=== PATIENT | male | born 1930 | race Caucasian/White ===

== ENCOUNTER 2016-07-27 17:58 | Observation (INO) | payer OTHER, MEDICARE ==
[~2016-07-27] VITALS: Ht 185.4 cm; Wt 95.7 kg
[~2016-07-27 17:58] MED LIST: ALL60 PO; AMIT10TA6 PO; BIO CLEANSE PO; CHOLCAP5 PO; DXY100 PO; FINA5TAB PO; FLUT0.15 NAE; GFNSR600 PO; IPRASOL4 INH; LACT10SO17 PO; MISCCAP80 PO; MULT-106 PO; NAPHSOL OP; NRN600 PO; PRED10TA PO; PRLSR20 PO; SALI0.6510; TAMS0.4C38 PO; Ventolin HFA INH
--- NOTE | 2016-07-27 18:20 | EMERGENCY ROOM VISIT NOTE ---
History Report prepared by Kar: Criss Moreau Under the Supervision of: Dr. Russell Paulson M.D. First contact with patient: 18:13 Chief Complaint: OTHER COMPLAINT Stated Complaint: SHAKY, OTHER COMPLAINT History of Present Illness The patient is a 86 year old male who presents to the Emergency Room with complaints of persistent shakiness that began about 5 hours ago. Per patient's granddaughter, if he does not hold his hands together, his upper body shakes violently. Initially his left side of his torso was shaking, but now both sides of his upper body shake. Denies headache, fever, chills, visual changes, shortness of breath, abdominal pain, melena, hematochezia, numbness, weakness, or other complaints. He has not had any recent falls or medication changes/ discontinuations. He smokes about a half a pack a day. He drinks alcohol on occasion, about once a week. The patient had surgery to repair a bulged disc in his lower back this past April. Source of History: patient Onset: 5 hours ago Position: other (global) Quality: other (shaking) Timing: other (persistent) Associated Symptoms: No SOB, No abdominal pain, No chills, No fevers, No headache, No hematochezia, No melena, No numbness, No weakness Review of Systems See HPI for pertinent positives & negatives. A total of 10 systems reviewed and were otherwise negative. Past Medical & Surgical Medical Problems: (1) Benign prostatic hypertrophy with outflow obstruction (2) BPH (benign prostatic hyperplasia) (3) Esophageal Reflux (4) Hypertension Nos (5) Lumbar degenerative disc disease (6) Lumbar disc herniation with radiculopathy (7) Neuropathy (8) Pleural effusion (9) Senile Nuclear Cataract (10) Shortness of breath Old medical records were reviewed. Nurse's notes were reviewed and I agree with. Family History FH: HTN (hypertension) FH: cancer FH: diabetes mellitus Kidney stone Social History Smoking Status: Current Every Day Smoker Alcohol Use: occasionally Drug Use: none Marital Status: Housing Status: lives with family Occupation Status: retired Current/Historical Medications Scheduled Albuterol Hfa (Ventolin Hfa), 4 PUFFS INH Q4H Amitriptyline Hcl (Elavil), 10 MG PO HS Cholecalciferol (Vitamin D3), 5,000 INTER.UNIT PO DAILY Fexofenadine HCl (Fexofenadine HCl), 60 MG PO BID Finasteride (Proscar), 5 MG PO QPM Fluticasone Propionate (Nasal) (Flonase Allergy Relief), 2 SPRAYS CARMEN DAILY Gabapentin (Gabapentin), 900 MG PO TID Lactulose (Chronulac), 30 ML PO BID Multiple Vitamins W/ Minerals (One Daily Mens), 1 TAB PO DAILY Nutraceuticals (Nutraceuticals), 3 CAP PO DAILY Omeprazole (Prilosec), 20 MG PO DAILY Probiotic Product (Probiotic), 2 CAP PO DAILY Tamsulosin Hcl (Flomax), 0.4 MG PO BID Scheduled PRN Ipratropium-Albuterol (Duoneb), 3 ML INH q4-q6h PRN for cough/wheeze/shortness breath Naphazoline W/ Pheniramine (Eye Allergy Relief), 1 DROP OP UD PRN for Allergy Symptoms Allergies Coded Allergies: No Known Allergies (Unverified , 11/16/15) Physical Exam Vital Signs Date Time Temp Pulse Resp B/P Pulse Ox O2 Delivery O2 Flow Rate FiO2 07/27/16 20:13 79 18 161/102 94 Room Air 07/27/16 18:24 76 07/27/16 18:05 37.0 77 18 119/92 95 Room Air Physical Exam General: Non-ill appearing older male who is resting comfortably. Well developed well nourished in no acute distress, breathing comfortably on room air. Normal speech. Holding his hands together which he states stops the shaking. When he sits up he seems to have shaking. HEENT: Normal cephalic atraumatic. Pupils are equal round and reactive to light. Sclerae are anicteric. Extraocular movements are intact. Oropharynx is pink with moist mucous membranes. No swelling of the mouth lips or tongue. Neck: Supple with a midline trachea. No meningeal signs or stiffness, no JVD or bruits. No Stridor. Chest: Clear to auscultation bilaterally. No wheezes or rhonchi. No increased work of breathing. Heart: regular rate and rhythm. Abdomen: Soft nontender, nondistended without rebound guarding or rigidity. Extremities: No cyanosis clubbing or edema. No calf tenderness or assymetry Spine/Back. Non tender to palpation. No CVA tenderness Skin: Good turgor without rashes. Neurologic exam: Cranial nerves two through 12 are intact. Motor and sensation are intact and symmetrical throughout. Medical Decision & Procedures ER Provider Diagnostic Interpretation: Radiology results as stated below per my review and radiologist interpretation: CT HEAD WITHOUT CONTRAST (CT) CLINICAL HISTORY: No evidence of tremors COMPARISON STUDY: 08/20/2011 TECHNIQUE: Axial CT of the brain is performed from the vertex to the skull base. IV contrast was not administered for this examination. CT DOSE: 537.48 mGy.cm FINDINGS: No intra or extra-axial mass lesions are visualized. There is no CT evidence of acute cortical infarction. There is no evidence of midline shift. There is no acute hemorrhage. No calvarial fractures are visualized. There are patchy white matter hypodensities likely on a small vessel basis. There is no evidence of pathologic ventricular dilatation. There is no evidence of acute sinusitis IMPRESSION: No acute intracranial findings Electronically signed by: Dima Ritchie M.D. 07/27/2016 7:23 PM Dictated Date/Time: 07/27/2016 7:22 PM CHEST ONE VIEW PORTABLE CLINICAL HISTORY: Atypical chest pain COMPARISON STUDY: 05/07/2016 FINDINGS: The heart is enlarged. There is bibasal interstitial thickening. There is no overt failure. There is no lobar consolidation.[ IMPRESSION: Cardiomegaly with chronic interstitial thickening. No evidence of lobar consolidation Electronically signed by: Dima Ritchie M.D. 07/27/2016 6:48 PM Dictated Date/Time: 07/27/2016 6:47 PM Laboratory Results 07/27/16 19:03 Red Blood Count 4.76, Mean Corpuscular Volume 92.0, Mean Corpuscular Hemoglobin 31.3, Mean Corpuscular Hemoglobin Concent 34.0, Mean Platelet Volume 10.2, Neutrophils (%) (Auto) 68.8, Lymphocytes (%) (Auto) 18.0, Monocytes (%) (Auto) 10.8, Eosinophils (%) (Auto) 1.8, Basophils (%) (Auto) 0.4, Neutrophils # (Auto ) 3.37, Lymphocytes # (Auto) 0.88, Monocytes # (Auto) 0.53, Eosinophils # (Auto ) 0.09, Basophils # (Auto) 0.02 07/27/16 19:03 Test 07/27/16 19:03 07/27/16 19:09 07/27/16 19:11 07/27/16 19:52 White Blood Count 4.90 K/uL (4.8-10.8) Red Blood Count 4.76 M/uL (4.7-6.1) Hemoglobin 14.9 g/dL (14.0-18.0) Hematocrit 43.8 % (42-52) Mean Corpuscular Volume 92.0 fL (80-100) Mean Corpuscular Hemoglobin 31.3 pg (25-34) Mean Corpuscular Hemoglobin Concent 34.0 g/dl (32-36) Platelet Count 138 K/uL (130-400) Mean Platelet Volume 10.2 fL (7.4-10.4) Neutrophils (%) (Auto) 68.8 % Lymphocytes (%) (Auto) 18.0 % Monocytes (%) (Auto) 10.8 % Eosinophils (%) (Auto) 1.8 % Basophils (%) (Auto) 0.4 % Neutrophils # (Auto) 3.37 K/uL (1.4-6.5) Lymphocytes # (Auto) 0.88 K/uL (1.2-3.4) Monocytes # (Auto) 0.53 K/uL (0.11-0.59) Eosinophils # (Auto) 0.09 K/uL (0-0.5) Basophils # (Auto) 0.02 K/uL (0-0.2) RDW Standard Deviation 44.6 fL (36.4-46.3) RDW Coefficient of Variation 13.1 % (11.5-14.5) Immature Granulocyte % (Auto) 0.2 % Immature Granulocyte # (Auto) 0.01 K/uL (0.00-0.02) Prothrombin Time 10.6 SECONDS (9.0-12.0) Prothromb Time International Ratio 1.0 (0.9-1.1) Activated Partial Thromboplast Time 27.8 SECONDS (21.0-31.0) Partial Thromboplastin Ratio 1.1 Anion Gap 8.0 mmol/L (3-11) Est Creatinine Clear Calc Drug Dose 54.5 ml/min Estimated GFR () 70.1 Estimated GFR (Non- 60.5 BUN/Creatinine Ratio 9.8 (10-20) Calcium Level 9.4 mg/dl (8.5-10.1) Total Bilirubin 0.7 mg/dl (0.2-1) Direct Bilirubin 0.1 mg/dl (0-0.2) Aspartate Amino Transf (AST/SGOT) 21 U/L (15-37) Alanine Aminotransferase (ALT/SGPT) 20 U/L (12-78) Alkaline Phosphatase 120 U/L (45-117) Total Creatine Kinase 101 U/L (39-308) Creatine Kinase MB 2.2 ng/ml (0.5-3.6) Creatine Kinase MB Ratio 2.2 (0-3.0) Total Protein 7.3 gm/dl (6.4-8.2) Albumin 3.7 gm/dl (3.4-5.0) Lipase 61 U/L (73-393) Prostate Specific Antigen 1.670 ng/ml (0.000-4.000) 25-Hydroxy Vitamin D Total 39.6 ng/ml (30-100) Bedside Lactic Acid Venous 1.47 mmol/L (0.90-1.70) Bedside Troponin I 0.000 ng/ml (0-0.045) Urine Color YELLOW Urine Appearance CLEAR (CLEAR) Urine pH 7.5 (4.5-7.5) Urine Specific [place] 1.012 (1.000-1.030) Urine Protein NEG (NEG) Urine Glucose (UA) NEG (NEG) Urine Ketones TRACE (NEG) Urine Occult Blood NEG (NEG) Urine Nitrite NEG (NEG) Urine Bilirubin NEG (NEG) Urine Urobilinogen NEG (NEG) Urine Leukocyte Esterase NEG (NEG) Laboratory studies as stated above per my review. Medications Administered Medications (Trade) Dose Ordered Sig/Cyn Route Start Time Stop Time Status Last Admin Dose Admin Sodium Chloride 250 ml @ 999 mls/hr Q16M STAT IV 07/27/16 18:22 07/27/16 18:37 DC 07/27/16 18:22 999 MLS/HR Sodium Chloride (Nss 1000ml) 1,000 ml @ 100 mls/hr Q10H STAT IV 07/27/16 18:22 07/28/16 04:21 07/27/16 18:22 100 MLS/HR Lorazepam 0.5 mg 0.5 mg NOW STAT SL 07/27/16 20:05 07/27/16 20:06 DC 07/27/16 20:11 0.5 MG Sodium Chloride 500 ml @ 999 mls/hr Q31M STAT IV 07/27/16 20:05 07/27/16 20:35 DC 07/27/16 20:05 999 MLS/HR Sodium Chloride (Nss 1000ml) 1,000 ml @ 150 mls/hr Q6H40M ONCE IV 07/27/16 20:05 07/28/16 02:44 07/27/16 20:05 150 MLS/HR ECG Indication: other (shakiness) Rate (beats per minute): 73 Rhythm: normal sinus Findings: no acute ischemic change, no ectopy, other (old inferior infarct) Comparison ECG Date: 05/08/16 Change: no significant change ED Course 1814: Past medical records reviewed. The patient was evaluated in room A12, and a complete history and physical examination were performed. 1821: Ordered NSS 1000 ml @ 100 mls/hr IV, NSS 250 ml @ 999 mls/hr IV. 1922: I reassessed the patient. He was resting comfortably. 1999: I reassessed the patient. He was resting comfortably. When he holds his hands together he does not have any shaking, but when he pulls them apart, it feels like his chest shakes. 2004: Ordered NSS 1000 ml @ 150 mls/hr IV, NSS 500 ml @ 999 mls/hr IV, Lorazepam 0.5 mg SL. 2057: Upon reevaluation, the patient is resting comfortably. I discussed the results and treatment plan with the patient. He verbalized agreement of the treatment plan. The patient will be evaluated for further management. 2104: I discussed the case with Dr. Francis - [facility] Hospitalist. The patient will be evaluated for further management. Medical Decision Differential diagnosis includes sepsis, electrolyte or metabolic abnormality, medication side effect or withdrawal, arrhythmia. This patient comes in as described above. He was placed in room B12. He complains of feeling shaky was started in his ribs and when he holds his hands together, he does not feel as shaky. He denies fever or any other complaints. His been no fall or trauma. No new medications. He has nothing to suggest withdrawal. IV access was established and blood work was obtained. He has a normal neurologic exam. I did an EKG as well as a CAT scan of his head. He was reassessed frequently. I do not think this is a seizure it occurs on both sides and he is awake during these episodes. He has no fever or white count or elevations lactic acid or anything to suggest a source of infection. His chest and urine are clear without signs of infection. There is nothing to suggest that has acute coronary syndrome or arrhythmia. He has no acute electrode metabolic abnormality otherwise. He was hydrated with IV normal saline was given a second bolus as well as Ativan 0.5 mg by mouth. He was reassessed he continues to feel shaky. I do think he needs to be observed in the hospital. At this point, I do not find any toxicologic explanation. He could have anxiety however at age 86, he's never had anxiety before so I think that's less likely it could be the beginning of an infection or neurologic process which is yet to declare itself. He also may have had some chest pain initially and I do think may be needs further cardiac workup. I have consulted Dr. Trotter to see the patient further treatment and evaluation Consults Time Called: 2099 Consulting Physician: Dr. Francis - [facility] Hospitalist Returned Call: [phone] I discussed the case with him. The patient will be evaluated for further management. Impression Primary Impression: Acute chest pain Additional Impressions: Weakness Shakiness Scribe Attestation The scribe's documentation has been prepared under my direction and personally reviewed by me in its entirety. I confirm that the note above accurately reflects all work, treatment, procedures, and medical decision making performed by me. Departure Information Dispostion Being Evaluated By Hospitalist Referrals Salome Joshi M.D. (PCP) Patient Instructions My [facility] Problem Qualifiers
[2016-07-27] MEDS ORDERED: SODIUM CHLORIDE 0.9% 1000ML 250 ML IV STA (18:22)
[2016-07-27] MEDS ORDERED: SODIUM CHLORIDE 0.9% 1000ML 1,000 ML IV STA (18:22)
[2016-07-27] MEDS ORDERED: NTRC PO (18:39)
[2016-07-27] MEDS ORDERED: VNTHFA/IN INH (18:40)
--- NOTE | 2016-07-27 18:49 | DIAGNOSTIC IMAGING REPORT ---
CHEST ONE VIEW PORTABLE CLINICAL HISTORY: Atypical chest pain COMPARISON STUDY: 05/07/2016 FINDINGS: The heart is enlarged. There is bibasal interstitial thickening. There is no overt failure. There is no lobar consolidation.[ IMPRESSION: Cardiomegaly with chronic interstitial thickening. No evidence of lobar consolidation Electronically signed by: Dima Ritchie M.D. 07/27/2016 6:48 PM Dictated Date/Time: 07/27/2016 6:47 PM
[2016-07-27 19:22] LABS: BASO % 0.4 %; BASO ABS # 0.02 K/uL (0-0.2); COMPLETE YES; EOS % 1.8 %; HEMATOCRIT 43.8 % (42-52); IG% 0.2 %; LYMPH ABS # 0.88 K/uL (1.2-3.4); MEAN CORPUSCULAR HEMOGLOBIN 31.3 pg (25-34); MEAN PLATELET VOLUME 10.2 fL (7.4-10.4); MONO % 10.8 %; NEUT % 68.8 %; PLATELET COUNT 138 K/uL (130-400); RED BLOOD COUNT 4.76 M/uL (4.7-6.1)
--- NOTE | 2016-07-27 19:24 | DIAGNOSTIC IMAGING REPORT ---
CT HEAD WITHOUT CONTRAST (CT) CLINICAL HISTORY: No evidence of tremors COMPARISON STUDY: 08/20/2011 TECHNIQUE: Axial CT of the brain is performed from the vertex to the skull base. IV contrast was not administered for this examination. CT DOSE: 537.48 mGy.cm FINDINGS: No intra or extra-axial mass lesions are visualized. There is no CT evidence of acute cortical infarction. There is no evidence of midline shift. There is no acute hemorrhage. No calvarial fractures are visualized. There are patchy white matter hypodensities likely on a small vessel basis. There is no evidence of pathologic ventricular dilatation. There is no evidence of acute sinusitis IMPRESSION: No acute intracranial findings Electronically signed by: Dima Ritchie M.D. 07/27/2016 7:23 PM Dictated Date/Time: 07/27/2016 7:22 PM
[2016-07-27 19:32] LABS: PARTIAL THROMBOPLASTIN RATIO 1.1; PROTHROMBIN TIME (PATIENT) 10.6 SECONDS (9.0-12.0)
[2016-07-27 19:43] LABS: BUN/CREATININE RATIO 9.8 (10-20); CALCIUM 9.4 mg/dl (8.5-10.1); CREATININE 1.1 mg/dl (0.60-1.40); POTASSIUM 3.7 mmol/L (3.5-5.1)
[2016-07-27 19:48] LABS: CKMB/CK RATIO 2.2 (0-3.0); PROSTATE SPECIFIC ANTIGEN 1.67 ng/ml (0.000-4.000)
[2016-07-27] MEDS ORDERED: SODIUM CHLORIDE 0.9% 1000ML 500 ML IV STA (20:05)
[2016-07-27] MEDS ORDERED: SODIUM CHLORIDE 0.9% 1000ML 1,000 ML IV ONE (20:05)
[2016-07-27] MEDS ORDERED: LORAZEPAM 0.5 MG TAB SL STA (20:05)
[2016-07-27 20:13] LABS: URINE APPEARANCE CLEAR (CLEAR); URINE BILIRUBIN NEG (NEG); URINE COLOR YELLOW; URINE NITRITE NEG (NEG); URINE PH 7.5 (4.5-7.5); URINE SPECIFIC GRAVITY 1.012 (1.000-1.030); UROBILINOGEN NEG (NEG)
[2016-07-27 20:14] LABS: MANUAL MICROSCOPIC REQUIRED? NO; REVIEW REQ? NO
[2016-07-27] MEDS ORDERED: ALBUT/IPRATROP 3MG/0.5MG NEB 3 ML VIAL INH PRN (21:45)
[2016-07-27] MEDS ORDERED: ALUMINUM/MAGNESIUM/SIMETH (MAALOX MAX) 30 ML UDC PO PRN (22:00)
[2016-07-27] MEDS ORDERED: LORAZEPAM 2 MG/ML 1 ML VIAL IV PRN (22:00)
[2016-07-27] MEDS ORDERED: POLYETHYLENE (MIRALAX) 17 GM PACK PO PRN (22:00)
[2016-07-27] MEDS ORDERED: ONDANSETRON INJ 2 MG/ML 2 ML VIAL IV PRN (22:00)
[2016-07-27] MEDS ORDERED: MAGNESIUM HYDROXIDE SUSP 30 ML UDC PO PRN (22:00)
[2016-07-27] MEDS ORDERED: ACETAMINOPHEN 325 MG TAB PO PRN (22:00)
--- NOTE | 2016-07-27 22:04 | History and Physical ---
History & Physical Date & Time of Service: Jul 27, 2016 at 21:59 Chief Complaint: Shaky, Other Complaint Primary Care Physician: Salome Joshi M.D. History of Present Illness Source: patient 86 y/o M Hx COPD , BPH , neuropathy. Pt was admitted for PNM 05/04 and was diagnosed with COPD at that time. He presents with an unusual complaint of violent upper extremity shaking. This began unilaterally on the L side and then involved both upper extremities. He denies a fever, denies CP, denies diarrhea or dysuria. He does not have a history of tremors or seizures and has not had ETOH for several years. He was awake and alert when shaking. Past Medical/Surgical History (1) Benign prostatic hypertrophy with outflow obstruction Status: Chronic (2) BPH (benign prostatic hyperplasia) Status: Chronic (3) Esophageal Reflux Status: Chronic (4) Hypertension Nos Status: Chronic (5) Neuropathy Status: Chronic (6) Senile Nuclear Cataract Status: Resolved 7) COPD on recent CT 8) Tobacco use - 1/2 pack QD Family History FH: HTN (hypertension) FH: cancer FH: diabetes mellitus Kidney stone Social History Smokes 1/2 pack daily Smoking Status: Current Every Day Smoker Alcohol Use: none Drug Use: none Marital Status: Housing status: lives with family Occupational Status: retired Immunizations History of Influenza Vaccine: Yes History of Tetanus Vaccine?: Unknown History of Pneumococcal: Yes History of Hepatitis B Vaccine: Unknown Multi-Drug Resistant Organisms History of MDRO: No Allergies Coded Allergies: No Known Allergies (Unverified , 11/16/15) Home Medications Scheduled Albuterol Hfa (Ventolin Hfa), 4 PUFFS INH Q4H Amitriptyline Hcl (Elavil), 10 MG PO HS Cholecalciferol (Vitamin D3), 5,000 INTER.UNIT PO DAILY Fexofenadine HCl (Fexofenadine HCl), 60 MG PO BID Finasteride (Proscar), 5 MG PO QPM Fluticasone Propionate (Nasal) (Flonase Allergy Relief), 2 SPRAYS CARMEN DAILY Gabapentin (Gabapentin), 900 MG PO TID Lactulose (Chronulac), 30 ML PO BID Multiple Vitamins W/ Minerals (One Daily Mens), 1 TAB PO DAILY Nutraceuticals (Nutraceuticals), 3 CAP PO DAILY Omeprazole (Prilosec), 20 MG PO DAILY Probiotic Product (Probiotic), 2 CAP PO DAILY Tamsulosin Hcl (Flomax), 0.4 MG PO BID Scheduled PRN Ipratropium-Albuterol (Duoneb), 3 ML INH q4-q6h PRN for cough/wheeze/shortness breath Naphazoline W/ Pheniramine (Eye Allergy Relief), 1 DROP OP UD PRN for Allergy Symptoms Review of Systems Constitutional: + problem reported (Rigors or shaking as above), No chills, No fever, No sweats Eyes: No eye pain, No worsening of vision ENT: No hearing loss, No nasal symptoms, No unusual epistaxis Respiratory: No cough, No sputum, No wheezing Cardiovascular: No PND, No chest pain, No orthopnea Abdomen: No nausea, No pain, No vomiting Musculoskeletal: No joint pain Genitourinary - Male: No dysuria, No hematuria, No urinary frequency Neurologic: + problem reported (Tremors as above), No memory loss, No paralysis , No weakness Psychiatric: No depression symptoms Endocrine: No fatigue Hematologic / Lymphatic: No abnormal bleeding/bruising Integumentary: No rash Allergic / Immunologic: No environmental allergies Physical Exam Vital Signs Date Time Temp Pulse Resp B/P Pulse Ox O2 Delivery O2 Flow Rate FiO2 07/27/16 20:13 79 18 161/102 94 Room Air 07/27/16 18:24 76 07/27/16 18:05 37.0 77 18 119/92 95 Room Air General Appearance: WD/WN, no apparent distress Head: normocephalic, atraumatic Eyes: normal inspection, PERRL, EOMI ENT: normal ENT inspection, pharynx normal Neck: supple, no adenopathy, thyroid normal, no JVD Respiratory/Chest: chest non-tender, lungs clear, no respiratory distress, no accessory muscle use, + decreased breath sounds Cardiovascular: regular rate, rhythm, no edema, no gallop, no JVD, no murmur, normal peripheral pulses Abdomen/GI: normal bowel sounds, non tender, soft Back: normal inspection, no CVA tenderness, no muscle spasm Extremities/Musculoskelatal: normal inspection, no calf tenderness, normal capillary refill, no pedal edema, normal range of motion Neurologic/Psych: grout machine tender II-XII nml as tested, no motor/sensory deficits, alert, normal mood/affect, normal reflexes, oriented x 3, + pertinent finding (Mild B/ L tremors - possibly asterixis seen) Skin: normal color, warm/dry, no rash Diagnostics Laboratory Results Results Past 24 Hours Test 07/27/16 19:03 07/27/16 19:09 07/27/16 19:11 07/27/16 19:52 Range/Units White Blood Count 4.90 4.8-10.8 K/uL Red Blood Count 4.76 4.7-6.1 M/uL Hemoglobin 14.9 14.0-18.0 g/dL Hematocrit 43.8 42-52 % Mean Corpuscular Volume 92.0 80-100 fL Mean Corpuscular Hemoglobin 31.3 25-34 pg Mean Corpuscular Hemoglobin Concent 34.0 32-36 g/dl Platelet Count 138 130-400 K/uL Mean Platelet Volume 10.2 7.4-10.4 fL Neutrophils (%) (Auto) 68.8 % Lymphocytes (%) (Auto) 18.0 % Monocytes (%) (Auto) 10.8 % Eosinophils (%) (Auto) 1.8 % Basophils (%) (Auto) 0.4 % Neutrophils # (Auto) 3.37 1.4-6.5 K/uL Lymphocytes # (Auto) 0.88 1.2-3.4 K/uL Monocytes # (Auto) 0.53 0.11-0.59 K/uL Eosinophils # (Auto) 0.09 0-0.5 K/uL Basophils # (Auto) 0.02 0-0.2 K/uL RDW Standard Deviation 44.6 36.4-46.3 fL RDW Coefficient of Variation 13.1 11.5-14.5 % Immature Granulocyte % (Auto) 0.2 % Immature Granulocyte # (Auto) 0.01 0.00-0.02 K/uL Prothrombin Time 10.6 9.0-12.0 SECONDS Prothromb Time International Ratio 1.0 0.9-1.1 Activated Partial Thromboplast Time 27.8 21.0-31.0 SECONDS Partial Thromboplastin Ratio 1.1 Sodium Level 141 136-145 mmol/L Potassium Level 3.7 3.5-5.1 mmol/L Chloride Level 106 98-107 mmol/L Carbon Dioxide Level 27 21-32 mmol/L Anion Gap 8.0 3-11 mmol/L Blood Urea Nitrogen 11 7-18 mg/dl Creatinine 1.10 0.60-1.40 mg/dl Est Creatinine Clear Calc Drug Dose 54.5 ml/min Estimated GFR () 70.1 Estimated GFR (Non- 60.5 BUN/Creatinine Ratio 9.8 10-20 Random Glucose 86 70-99 mg/dl Calcium Level 9.4 8.5-10.1 mg/dl Total Bilirubin 0.7 0.2-1 mg/dl Direct Bilirubin 0.1 0-0.2 mg/dl Aspartate Amino Transf (AST/SGOT) 21 15-37 U/L Alanine Aminotransferase (ALT/SGPT) 20 12-78 U/L Alkaline Phosphatase 120 45-117 U/L Total Creatine Kinase 101 39-308 U/L Creatine Kinase MB 2.2 0.5-3.6 ng/ml Creatine Kinase MB Ratio 2.2 0-3.0 Total Protein 7.3 6.4-8.2 gm/dl Albumin 3.7 3.4-5.0 gm/dl Lipase 61 73-393 U/L Prostate Specific Antigen 1.670 0.000-4.000 ng/ml 25-Hydroxy Vitamin D Total 39.6 30-100 ng/ml Bedside Lactic Acid Venous 1.47 0.90-1.70 mmol/L Bedside Troponin I 0.000 0-0.045 ng/ml Urine Color YELLOW Urine Appearance CLEAR CLEAR Urine pH 7.5 4.5-7.5 Urine Specific [place] 1.012 1.000-1.030 Urine Protein NEG NEG Urine Glucose (UA) NEG NEG Urine Ketones TRACE NEG Urine Occult Blood NEG NEG Urine Nitrite NEG NEG Urine Bilirubin NEG NEG Urine Urobilinogen NEG NEG Urine Leukocyte Esterase NEG NEG Test 07/27/16 21:43 Range/Units Microbiology Results 07/27/16 Blood Culture, Lilian Batch Pending 07/27/16 Blood Culture, Received Pending 07/27/16 Blood Culture, Received Pending 07/27/16 Urine Culture, Received Pending Impression Assessment and Plan 86 y/o M Hx COPD , BPH , neuropathy. Pt was admitted for PNM 05/04 and was diagnosed with COPD at that time. He presents with an unusual complaint of violent upper extremity shaking. This began unilaterally on the L side and then involved both upper extremities. He denies a fever, denies CP, denies diarrhea or dysuria. He does not have a history of tremors or seizures and has not had ETOH for several years. He was awake and alert when shaking. 1) Tremors or rigors - no evidence of infection - benign exam - labs WNL thus far - no history of seizures, liver disease or recent ETOH use. We will observe on medicine, obtain blood cultures, TSH, ammonia and prolactin levels. If we cannot elucidate a cause and his symptoms persist, we can an MRI brain, neurology consult. This would not technically represent a partial seizure as the symptoms were B/L and there was no LOC. This may occasionally be a side effect of both Amitriptyline and Gabapentin so that both should be tapered down to measure the effect if symptoms persist. He is on an exceptionally high dose of Bubba which we will reduce currently. We can check levels of both. 2) COPD - has not been using Albuterol more often recently and had not used any the day of admission. Cont Duonebs PRN - no wheezing or SOB at present. 3) BPH - cont Flomax Full code - Heparin prophylaxis Total time for this admit including review of labs, meds, previous records - discussion with pt/family and ER attending - 35 min Level of Care Telemetry Resuscitation Status FULL RESUSCITATION VTE Prophylaxis VTE Risk Assessment Done? Y/N: Yes Risk Level: Moderate Given or contraindicated: Unfractionated heparin SQ
[2016-07-27 22:55] VITALS: BP 136/86; PULSE 89; TEMP 37.8; O2SAT 93; Ht 185.4 cm; Wt 95.7 kg
[2016-07-27] MEDS ORDERED: IV FLUIDS COMPLETED PRN (23:00)
[2016-07-27] MEDS ORDERED: LORAZEPAM INJ 0.25 MG in SYRINGE 0.125 ML IV PRN (23:15)
[2016-07-28] MEDS: ALBUTEROL HFA 8 GM INHALER INH SCH ×6 (04:00→20:37)
[2016-07-28] MEDS: HEPARIN SOD 5000 UNIT/0.5 ML CARP SQ SCH ×3 (06:10→22:06)
[2016-07-28 07:15] VITALS: BP 129/77; PULSE 74; TEMP 37.4; O2SAT 93
[2016-07-28] MEDS ORDERED: GABAPENTIN 300 MG CAP PO SCH (08:00)
[2016-07-28] MEDS: LACTULOSE SYRUP 20 GM/30 ML UDC PO SCH ×2 (08:32→20:37)
[2016-07-28] MEDS: FLUTICASONE PROPIONATE NA SPR 16 GM BTL NAE SCH (08:32)
[2016-07-28] MEDS: FEXOFENADINE HCL 60 MG TAB PO SCH ×2 (08:33→20:37)
[2016-07-28] MEDS: TAMSULOSIN HCL 0.4 MG CAP PO SCH ×2 (08:34→20:38)
[2016-07-28] MEDS: PANTOprazole SOD 40 MG TAB PO SCH (08:35)
[2016-07-28] MEDS: CEROVITE ADV FORMULA TAB PO SCH (08:37)
[2016-07-28] MEDS: LACTOBACILLUS ACIDOPHILUS (FLORANEX) TAB PO SCH (08:37)
--- NOTE | 2016-07-28 12:37 | Progress Note ---
Subjective Date of Service: Jul 28, 2016. Subjective Pt evaluation today including: conversation w/ patient, physical exam, chart review, lab review, review of studies, review of inpatient medication list Pain: no pain Voiding: no voiding problems Pt is seen and examined by me. Pt is c/o of bilateral hand tremors and shakiness of bilateral upper extremities w/o any weakness, dizziness, CP and SOB. pt is on high doses of Gabapentin for his neuropathy as well as amitriptyline. Pt denies blurry vision and headache.Pt denies abdominal pain, nausea, vomiting and diarrhea. Pt denies difficulty with speech and swallowing. Pt is fully awake, alert and oriented. Pt denies taking any herbal medication. Pt states violent upper extremity shaking, began unilaterally on the L side and then involved both upper extremities along with tremors. Pt has no shaking slight fine tremor in both hands. 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 3) BPH (benign prostatic hyperplasia) Status: Chronic 3) Esophageal Reflux Status: Chronic 4) Hypertension Nos Status: Chronic 5) Neuropathy Status: Chronic Review of Systems Neurologic: + problem reported (tremors/ shaking both UE bilateral) All Other Systems: Reviewed and Negative Medications Medications (Trade) Dose Ordered Sig/Cyn Route Start Time Stop Time Status Last Admin Dose Admin Sodium Chloride 250 ml @ 999 mls/hr Q16M STAT IV 07/27/16 18:22 07/27/16 18:37 DC 07/27/16 18:22 999 MLS/HR Sodium Chloride (Nss 1000ml) 1,000 ml @ 100 mls/hr Q10H STAT IV 07/27/16 18:22 07/27/16 22:06 DC 07/27/16 18:22 100 MLS/HR Lorazepam 0.5 mg 0.5 mg NOW STAT SL 07/27/16 20:05 07/27/16 20:06 DC 07/27/16 20:11 0.5 MG Sodium Chloride 500 ml @ 999 mls/hr Q31M STAT IV 07/27/16 20:05 07/27/16 20:35 DC 07/27/16 20:05 999 MLS/HR Sodium Chloride (Nss 1000ml) 1,000 ml @ 150 mls/hr Q6H40M ONCE IV 07/27/16 20:05 07/27/16 23:11 DC 07/27/16 20:05 150 MLS/HR Albuterol (Ventolin Hfa Inhaler) 4 puffs Q4 INH 07/28/16 00:00 08/27/16 00:00 07/28/16 08:31 4 PUFFS Fexofenadine HCl (Suzanna Tab) 60 mg BID PO 07/28/16 08:00 08/27/16 08:59 07/28/16 08:33 60 MG Fluticasone Propionate (Flonase Nasal [place]) 2 sprays DAILY CARMEN 07/28/16 08:00 08/27/16 08:59 07/28/16 08:32 2 SPRAYS Gabapentin (Neurontin Cap) 900 mg TID PO 07/28/16 08:00 08/27/16 08:59 07/28/16 08:34 900 MG Lactulose (Chronulac Syrup) 20 gm BID PO 07/28/16 08:00 08/27/16 08:59 07/28/16 08:32 20 GM Multivitamins/ Minerals (Multivitamin W/ Minerals Tab) 1 tab DAILY PO 07/28/16 08:00 08/27/16 08:59 07/28/16 08:37 1 TAB Tamsulosin HCl (Flomax Cap) 0.4 mg BID PO 07/28/16 08:00 08/27/16 08:59 07/28/16 08:34 0.4 MG Pantoprazole Sodium (Protonix Tab) 40 mg DAILY PO 07/28/16 08:00 08/27/16 08:59 07/28/16 08:35 40 MG Lactobacillus Acidophilus (Floranex Tab) 2 tab DAILY PO 07/28/16 08:00 08/27/16 08:59 07/28/16 08:37 2 TAB Heparin Sodium (Porcine) (Heparin Sq 5000 Unit/0.5ml) 5,000 unit Q8H SQ 07/28/16 06:00 08/27/16 05:59 07/28/16 06:10 5,000 UNIT Acetaminophen (Tylenol Tab) 650 mg Q4H PRN PO 07/27/16 22:00 08/26/16 21:59 07/28/16 11:56 650 MG Objective Vital Signs Date Time Temp Pulse Resp B/P Pulse Ox O2 Delivery O2 Flow Rate FiO2 07/28/16 09:05 Room Air 07/28/16 07:15 37.4 74 20 129/77 93 Room Air 07/28/16 00:01 Room Air 07/27/16 22:55 37.8 89 18 136/86 93 Room Air 07/27/16 22:55 37.8 89 18 136/86 93 Room Air 07/27/16 22:33 90 18 113/70 94 Room Air 07/27/16 20:13 79 18 161/102 94 Room Air 07/27/16 18:24 76 07/27/16 18:05 37.0 77 18 119/92 95 Room Air Physical Exam General Appearance: no apparent distress Eyes: EOMI Neck: supple Respiratory/Chest: lungs clear, normal breath sounds, no respiratory distress Cardiovascular: regular rate, rhythm, no edema, no murmur Abdomen: normal bowel sounds, non tender, soft Extremities: normal range of motion, normal inspection Neurologic/Psychiatric: life insurance specialist II-XII nml as tested, no motor/sensory deficits, alert, normal mood/affect, oriented x 3 Skin: no rash Laboratory Results Last 24 Hours Test 07/27/16 19:03 07/27/16 19:09 07/27/16 19:11 07/27/16 19:52 White Blood Count 4.90 K/uL Red Blood Count 4.76 M/uL Hemoglobin 14.9 g/dL Hematocrit 43.8 % Mean Corpuscular Volume 92.0 fL Mean Corpuscular Hemoglobin 31.3 pg Mean Corpuscular Hemoglobin Concent 34.0 g/dl Platelet Count 138 K/uL Mean Platelet Volume 10.2 fL Neutrophils (%) (Auto) 68.8 % Lymphocytes (%) (Auto) 18.0 % Monocytes (%) (Auto) 10.8 % Eosinophils (%) (Auto) 1.8 % Basophils (%) (Auto) 0.4 % Neutrophils # (Auto) 3.37 K/uL Lymphocytes # (Auto) 0.88 K/uL Monocytes # (Auto) 0.53 K/uL Eosinophils # (Auto) 0.09 K/uL Basophils # (Auto) 0.02 K/uL RDW Standard Deviation 44.6 fL RDW Coefficient of Variation 13.1 % Immature Granulocyte % (Auto) 0.2 % Immature Granulocyte # (Auto) 0.01 K/uL Prothrombin Time 10.6 SECONDS Prothromb Time International Ratio 1.0 Activated Partial Thromboplast Time 27.8 SECONDS Partial Thromboplastin Ratio 1.1 Sodium Level 141 mmol/L Potassium Level 3.7 mmol/L Chloride Level 106 mmol/L Carbon Dioxide Level 27 mmol/L Anion Gap 8.0 mmol/L Blood Urea Nitrogen 11 mg/dl Creatinine 1.10 mg/dl Est Creatinine Clear Calc Drug Dose 54.5 ml/min Estimated GFR () 70.1 Estimated GFR (Non- 60.5 BUN/Creatinine Ratio 9.8 Random Glucose 86 mg/dl Calcium Level 9.4 mg/dl Total Bilirubin 0.7 mg/dl Direct Bilirubin 0.1 mg/dl Aspartate Amino Transf (AST/SGOT) 21 U/L Alanine Aminotransferase (ALT/SGPT) 20 U/L Alkaline Phosphatase 120 U/L Total Creatine Kinase 101 U/L Creatine Kinase MB 2.2 ng/ml Creatine Kinase MB Ratio 2.2 Total Protein 7.3 gm/dl Albumin 3.7 gm/dl Lipase 61 U/L Prostate Specific Antigen 1.670 ng/ml 25-Hydroxy Vitamin D Total 39.6 ng/ml Thyroid Stimulating Hormone (TSH) 0.789 uIu/ml Prolactin 9.78 ng/mL Bedside Lactic Acid Venous 1.47 mmol/L Bedside Troponin I 0.000 ng/ml Urine Color YELLOW Urine Appearance CLEAR Urine pH 7.5 Urine Specific [place] 1.012 Urine Protein NEG Urine Glucose (UA) NEG Urine Ketones TRACE Urine Occult Blood NEG Urine Nitrite NEG Urine Bilirubin NEG Urine Urobilinogen NEG Urine Leukocyte Esterase NEG Test 07/27/16 22:09 07/27/16 23:59 07/28/16 10:35 Ammonia 30.0 umol/L Assessment and Plan 1) Tremors /Shakiness of Bilateral UE could be secondary to gabapentin high doses and amitriptyline . - Base on Pt current Crcl should not take more than 1400mg gabapentin a day in divided doses. - Higher gabapentin doses can cause shakiness and tremors. - Gabapentin/amitriptyline levels pending. TSH and prolactin level normal. - shakiness and tremors mostly resolved. - Pt neuropathic pain should be managed with lower doses by PCP. - Benign exam - labs WNL thus far - no history of seizures, no liver disease or recent ETOH use. - Will hold neurolgy consult for now, along with MRI. 2) COPD - Cont Duonebs PRN - no wheezing or SOB at present. 3) BPH - cont Flomax Continued [facility] stay due to: other Discharge planning: home
[2016-07-28] MEDS ORDERED: NURSING VERBAL MED ORDER ONE ×2 (14:00→20:00)
[2016-07-28 15:28] VITALS: BP 114/74; PULSE 70; TEMP 36.6; O2SAT 93
[2016-07-28] MEDS ORDERED: GABA-113 PO (19:56)
[2016-07-28] MEDS: GABAPENTIN 600 MG TAB PO SCH (20:38)
[2016-07-28] MEDS ORDERED: AMITRIPTYLINE HCL 10 MG TAB PO SCH (21:00)
[2016-07-28] MEDS ORDERED: FINASTERIDE 5 MG TAB PO SCH (21:00)
[2016-07-28 23:29] VITALS: BP 116/69; PULSE 71; TEMP 37.5; O2SAT 95
[2016-07-29] MEDS: ALBUTEROL HFA 8 GM INHALER INH SCH ×4 (04:00→12:48)
[2016-07-29] MEDS: HEPARIN SOD 5000 UNIT/0.5 ML CARP SQ SCH ×2 (06:15→12:48)
[2016-07-29 07:26] VITALS: BP 114/69; PULSE 66; TEMP 37; O2SAT 94
[2016-07-29] MEDS ORDERED: BIOCLEANSE PO SCH (08:00)
[2016-07-29] MEDS: GABAPENTIN 600 MG TAB PO SCH (08:01)
[2016-07-29] MEDS: CEROVITE ADV FORMULA TAB PO SCH (08:02)
[2016-07-29] MEDS: LACTULOSE SYRUP 20 GM/30 ML UDC PO SCH (08:02)
[2016-07-29] MEDS: FEXOFENADINE HCL 60 MG TAB PO SCH (08:02)
[2016-07-29] MEDS: TAMSULOSIN HCL 0.4 MG CAP PO SCH (08:02)
[2016-07-29] MEDS: LACTOBACILLUS ACIDOPHILUS (FLORANEX) TAB PO SCH (08:02)
[2016-07-29] MEDS: PANTOprazole SOD 40 MG TAB PO SCH (08:02)
[2016-07-29] MEDS: FLUTICASONE PROPIONATE NA SPR 16 GM BTL NAE SCH (08:05)
[2016-07-29 11:35] LABS: HEMATOCRIT 40.7 % (42-52); MEAN CELL VOLUME 91.9 fL (80-100); MEAN CORPUSCULAR HEMOGLOBIN 31.4 pg (25-34); MEAN CORPUSCULAR HGB CONC 34.2 g/dl (32-36); MEAN PLATELET VOLUME 10.1 fL (7.4-10.4); PLATELET COUNT 118 K/uL (130-400); RED BLOOD COUNT 4.43 M/uL (4.7-6.1)
[2016-07-29 11:58] LABS: CALCIUM 8.8 mg/dl (8.5-10.1); CREATININE 1.2 mg/dl (0.60-1.40); POTASSIUM 3.9 mmol/L (3.5-5.1)
--- NOTE | 2016-07-29 13:07 | Discharge Instructions ---
Discharge Instructions Date of Service Jul 29, 2016. (Tatum Bassett PA-C) Admission Reason for Admission: Shakiness (Tatum Bassett PA-C) Discharge Discharge Diagnosis / Problem: Tremors/shaking (Tatum Bassett PA-C) Discharge Goals Goal(s): Decrease discomfort, Improve function, Diagnostic testing, Therapeutic intervention (Tatum Bassett PA-C) Activity Recommendations Activity Limitations: resume your previous activity . (Tatum Bassett PA-C) Instructions / Follow-Up Instructions / Follow-Up You were admitted to the hospital with upper extremity tremors and shaking. A CAT scan of the head and the chest x-ray did not show any acute findings. There did not appear to be any source of infection as the cause, and all of your blood cultures were negative for infection. Several lab tests were performed to help determine the cause of your symptoms, and these were all normal. Due to your kidney function, it was determined that your dose of gabapentin was too high, and this was the most likely cause of your tremors and shaking. Your gabapentin dose was decreased and the shaking and tremors did improve. As your symptoms have nearly completely resolved, you will be continued on this lower dose of gabapentin 600 mg by mouth twice a day. Medications: *Please continue taking gabapentin 600 mg by mouth twice a day only. *You may resume your other home medications as prescribed. Follow up: *Please follow-up with your primary care provider within one week regarding your hospital stay and to ensure that your symptoms have completely resolved. Your PCP will receive a copy of your medical records, as well as the changes to your medication. Please seek medical attention if you experiences fevers, chills, sweats, chest pain, shortness of breath, nausea, vomiting, numbness and tingling, lightheadedness, loss of consciousness, or worsening tremors and shakiness. (Tatum Bassett PA-C) Current Hospital Diet Patient's current hospital diet: AHA Diet (Heart Healthy) (Tatum Bassett PA-C) Discharge Diet Recommended Diet: AHA Diet (Heart Healthy) (Tatum Bassett PA-C) Procedures Procedures Performed: Head CT scan and chest x-ray: no acute findings (Tatum Bassett PA-C) Pending Studies Studies pending at discharge: no (Tatum Bassett PA-C) Medical Emergencies . Who to Call and When: Medical Emergencies: If at any time you feel your situation is an emergency, please call 911 immediately. . (Tatum Bassett, CALEB) Non-Emergent Contact Non-Emergency issues call your: Primary Care Provider Call Non-Emergent contact if: you have a fever, you have any medication questions . (Tatum Bassett PA-C) Past History Medical & Surgical History: (1) Shakiness (2) Neuropathy (3) Hypertension Nos (4) BPH (benign prostatic hyperplasia) (Tatum Bassett, CALEB) . "Provider Documentation" section prepared by Tatum Bassett. (Tatum Bassett, REZAC) VTE Core Measure Inpt VTE Proph given/why not?: Unfractionated heparin SQ (Tatum Bassett PA-C)
--- NOTE | 2016-07-29 13:34 | Discharge Summary ---
Discharge Summary Date of Service Jul 29, 2016. 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 Esophageal Reflux Status: Chronic Hypertension Nos Status: Chronic Neuropathy Status: Chronic Senile Nuclear Cataract Status: Resolved COPD on recent CT Tobacco use - 1/2 pack QD Immunizations: Have You Had Influenza Vaccine: Yes History of Tetanus Vaccine?: Unknown History of Pneumococcal: Yes History of Hepatitis B Vaccine: Unknown (Tatum Bassett PA-C) Medication Reconciliation Continued Medications: Albuterol Hfa (Ventolin Hfa) 200 Puffs/37218 Mcg Aers 4 PUFFS INH Q4H for SOB/Wheezing, #1 INHALER Amitriptyline Hcl (Elavil) 10 Mg Tab 10 MG PO HS, TAB Cholecalciferol (Vitamin D3) 5,000 Unit Cap 5000 INTER.UNIT PO DAILY Fexofenadine HCl (Fexofenadine HCl) 60 Mg Tab 60 MG PO BID, #30 TAB 0 Refills this can be purchased over the counter; for nasal congestion. Finasteride (Proscar) 5 Mg Tab 5 MG PO QPM Fluticasone Propionate (Nasal) (Flonase Allergy Relief) 50 Mcg/Act Spr 2 SPRAYS CARMEN DAILY Gabapentin (Gabapentin) 600 Mg Tab 600 MG PO BID Ipratropium-Albuterol (Duoneb) 3 Ml Nebu 3 ML INH q4-q6h PRN for cough/wheeze/shortness breath, #1 BOX 0 Refills diagnosis - J44.1 (COPD with exacerbation) Lactulose (Chronulac) 10 Gm/15 Ml Syrp 20 GM PO BID Multiple Vitamins W/ Minerals (One Daily Mens) 1 Tab Tab 1 TAB PO DAILY Naphazoline W/ Pheniramine (Eye Allergy Relief) 1 Amarilis Amarilis 1 DROP OP UD PRN for Allergy Symptoms Nutraceuticals (Nutraceuticals) Ea 3 CAP PO DAILY Omeprazole (Prilosec) 20 Mg Capcr 20 MG PO DAILY Probiotic Product (Probiotic) 1 Cap Cap 2 CAP PO DAILY Tamsulosin Hcl (Flomax) 0.4 Mg Cap 0.4 MG PO BID, CAP Discontinued Medications: Gabapentin (Neurontin) 300 Mg Cap 900 MG PO HS, CAP Referrals At Discharge Follow up Referrals: Physician Referral - Within 1 Week with Salome Joshi M.D. Discharge Exam Patient reports feeling well. He states that shaking now only occurs intermittently and is much improved compared to admission. The patient denies fevers, chills, sweats, chest pain, palpitations, claudication, cough, wheezing , shortness of breath, nausea, vomiting, abdominal pain, dysuria, hematuria, urinary retention, paralysis, weakness, numbness and tingling. Review of Systems: Constitutional: No chills, No fever, No sweats Eyes: No diplopia, No eye pain, No worsening of vision ENT: No hearing loss, No sore throat, No trouble swallowing Respiratory: No cough, No shortness of breath, No wheezing Cardiovascular: No chest pain, No claudication, No palpitations Abdomen: No nausea, No pain, No vomiting Musculoskeletal: No calf pain, No joint pain, No muscle pain Genitourinary - Male: No dysuria, No hematuria, No urinary retention Neurologic: + problem reported (intermittent tremors in upper extremities bilaterally), No numbness/tingling, No paralysis, No weakness Integumentary: No color change, No itch, No rash Physical Exam: General Appearance: WD/WN, no apparent distress Eyes: normal inspection, PERRL, EOMI ENT: normal ENT inspection, hearing grossly normal, pharynx normal Neck: supple, no JVD, trachea midline Respiratory/Chest: lungs clear, normal breath sounds, no respiratory distress Cardiovascular: regular rate, rhythm, no gallop, no murmur Abdomen / GI: normal bowel sounds, non tender, soft Extremities: no calf tenderness, normal capillary refill, no pedal edema Neurologic/Psychiatric: alert, normal mood/affect, oriented x 3, + pertinent finding (no tremors noted) Skin: normal color, warm/dry, no rash (Tatum Bassett ., PAVaneC) Hospital Course 86 y/o male with a history of COPD, BPH , and neuropathy who presented with violent upper extremity shaking. Symptoms initially began in LUE and then spread to both upper extremities. Denies history of tremors or seizures, no alcohol for years. Awake and alert during shaking, denies any LOC. Tremors/shaking--likely secondary to high doses of gabapentin given creatinine clearance less than 60. Recommended to have 700 mg of gabapentin twice a day or less -Admitted to med/surg -TSH, ammonia and prolactin levels within normal limits -Blood cultures negative -Urine culture positive for lactobacillus. Asymptomatic, no need for tx -Gabapentin decreased to 600 mg PO BID -Symptoms have nearly completely resolved since decreasing gabapentin dose. Will continue dose as outpatient. No need for MRI or neurology consult at this time Neuropathy -Continue gabapentin as above, and amitriptyline 10 mg PO qhs COPD -Continue Albuterol inhaler BPH -Continue Flomax 0.4 mg PO BID and Proscar 5 mg PO qd DVT prophylaxis -Heparin 5000 units SC q8h Code Status -Level I, FULL RESUSCITATION STATUS Dispo -Patient medically stable to return home -Follow-up with PCP in 1 week to ensure complete resolution of symptoms Total Time Spent: Greater than 30 minutes This includes examination of the patient, discharge planning, medication reconciliation, and communication with other providers. (Tatum Bassett ., CALEB) Discharge Instructions Please refer to the electronic Patient Visit Report (Discharge Instructions) for additional information. (Tatum Bassett .CALEB) Additional Copies To Salome Joshi M.D. Reviewed: Pt Seen/Exam by Me (Britney Rodriguez MD) History Physician Cement Handler Supervision Note: I interviewed and examined the patient. Discussed with SAMMY Bassett and agree with findings and plan as documented in the note. Any exceptions or clarifications are listed here: Pt feeling completely back to normal at the time I saw him just before discharge. No tremors or shaking at all. No chest pain, no fevers, no cough, no SOB, no leg shaking, no weakness. Vitals reviewed NAD, AAOx3 RRR no mgr nl S1S2 CTAB breathing unlabored Abd +BS soft NT ND Neuro: no resting or intention tremor, moving all extremities well, no asterixis Skin: no rashes 86 yo male with bilateral arm tremors without loss of consciousness, not likely to be partial complex seizure. Resolved either on own or with lowering gabapentin dose. Gabapentin and amitriptyline levels pending at time of discharge and should be followed up on by PCP Stable for dc to home Documented By: Britney Rodriguez (Britney Rodriguez MD)
[2016-07-29 13:55] VITALS: BP 114/69; PULSE 66; TEMP 37; O2SAT 94
[2016-08-01 01:34] LABS: AMI & NORTRIPTYLINE LESS THAN 25 MCG/L (100-250); AMITRIPTYLINE LESS THAN 25 (SEE TOTAL); NORTRIPTYLINE LESS THAN 25 (SEE TOTAL)
== END 2016-07-29 15:17 | disposition home or self-care (01) ==
LOC: ENRESERVTM → ENRESERVDT → EDBD 17:58 → C.EDA 18:00 → C.4E 21:58
PROVIDERS: ADMIT Internal Medicine; ATTEND Family Medicine
DX: R25.1 Tremor, unspecified (principal); J44.9 Chronic obstructive pulmonary disease, unspecified; F17.210 Nicotine dependence, cigarettes, uncomplicated; N40.0 Benign prostatic hyperplasia without lower urinary tract symptoms; K21.9 Gastro-esophageal reflux disease without esophagitis; I10 Essential (primary) hypertension; G62.9 Polyneuropathy, unspecified; Z82.49 Family history of ischemic heart disease and other diseases of the circulatory system; Z83.3 Family history of diabetes mellitus; Z84.1 Family history of disorders of kidney and ureter; Z79.899 Other long term (current) drug therapy

== ENCOUNTER 2016-11-01 11:41 | Emergency (ER) | payer OTHER, MEDICARE ==
[~2016-11-01] VITALS: Ht 185.4 cm; Wt 85.6 kg
[~2016-11-01 11:41] MED LIST changes: -BIO CLEANSE PO; -DXY100 PO; -GFNSR600 PO; +NTRC PO; -PRED10TA PO; -SALI0.6510; +VNTHFA/IN INH; -Ventolin HFA INH
[2016-11-01 11:47] VITALS: TEMP 36.7; Ht 185.4 cm; Wt 85.6 kg
[2016-11-01] MEDS ORDERED: ALBUT/IPRATROP 3MG/0.5MG NEB 3 ML VIAL INH STA (12:08)
[2016-11-01 12:22] LABS: BASO % 0.1 %; BASO ABS # 0.01 K/uL (0-0.2); COMPLETE YES; EOS % 0.3 %; HEMATOCRIT 41.4 % (42-52); IG% 0.3 %; LYMPH % 13.5 %; LYMPH ABS # 1.88 K/uL (1.2-3.4); MEAN CELL VOLUME 91.8 fL (80-100); MEAN CORPUSCULAR HGB CONC 33.8 g/dl (32-36); MONO % 5.5 %; NEUT % 80.3 %; PLATELET COUNT 187 K/uL (130-400); RED BLOOD COUNT 4.51 M/uL (4.7-6.1); WHITE BLOOD COUNT 13.89 K/uL (4.8-10.8)
[2016-11-01 12:24] VITALS: O2SAT 96
[2016-11-01 12:31] LABS: PARTIAL THROMBOPLASTIN RATIO 1.1; PROTHROMBIN TIME (PATIENT) 10.7 SECONDS (9.0-12.0)
[2016-11-01 12:39] LABS: ALT/SGPT 16 U/L (12-78); BLOOD UREA NITROGEN 15 mg/dl (7-18); BUN/CREATININE RATIO 11.6 (10-20); CALCIUM 9.3 mg/dl (8.5-10.1); CARBON DIOXIDE 23 mmol/L (21-32); CHLORIDE 107 mmol/L (98-107); GLUCOSE 112 mg/dl (70-99); SODIUM 139 mmol/L (136-145)
--- NOTE | 2016-11-01 12:40 | DIAGNOSTIC IMAGING REPORT ---
CHEST ONE VIEW PORTABLE CLINICAL HISTORY: sob dyspnea COMPARISON STUDY: 07/27/2016 FINDINGS: Small parenchymal infiltrate medial right base. Mild stable cardiomegaly. Chronic pulmonary vascular congestion. IMPRESSION: Small parenchymal infiltrate medial right base. Baseline pulmonary vascular congestion. Electronically signed by: Mango Cotter M.D. 11/01/2016 12:38 PM Dictated Date/Time: 11/01/2016 12:38 PM
[2016-11-01 12:44] LABS: ALB/GLOB RATIO 0.8 (0.9-2); ALKALINE PHOSPHATASE 85 U/L (45-117); AST/SGOT 15 U/L (15-37); CKMB/CK RATIO 1.5 (0-3.0)
[2016-11-01] MEDS ORDERED: ACET-1256 PO (13:30)
[2016-11-01] MEDS ORDERED: BUPR-79 PO (13:30)
[2016-11-01] MEDS ORDERED: LEVOFLOXACIN 250 MG TAB PO STA (14:25)
[2016-11-01] MEDS ORDERED: LEVO-366 PO (14:25)
--- NOTE | 2016-11-01 14:25 | EMERGENCY ROOM VISIT NOTE ---
History Report prepared by Kar: Nuris Danielson Under the Supervision of: Dr. Cuong Calles D.O. First contact with patient: 12:08 Chief Complaint: RESPIRATORY PROBLEMS Stated Complaint: BAD COLD, POSSIBLY PNEUMONIA Nursing Triage Summary: triage note: pt reports "my daughter thinks i have pnemonia i have had a cough and coughing up yellow stuff and i am short of breath for the past couple days." pt also reports pain in chest with coughing. History of Present Illness The patient is a 86 year old male who presents to the Emergency Room with complaints of a persistent cough starting about 3 days ago. He reports some yellow phlegm production. He has lower chest pain with coughing. He also reports intermittent chills. He has been using his inhaler twice daily. He has a history of COPD. He denies any fevers, shortness of breath, abdominal pain, or any other complaints. Source of History: patient Onset: about 3 days ago Position: other (global) Quality: other (cough) Timing: other (persistent) Associated Symptoms: + chills, + chest pain, No fevers, No SOB, No abdominal pain Review of Systems See HPI for pertinent positives & negatives. A total of 10 systems reviewed and were otherwise negative. Past Medical & Surgical Medical Problems: (1) Benign prostatic hypertrophy with outflow obstruction (2) BPH (benign prostatic hyperplasia) (3) Esophageal Reflux (4) Hypertension Nos (5) Lumbar degenerative disc disease (6) Lumbar disc herniation with radiculopathy (7) Neuropathy (8) Pleural effusion (9) Senile Nuclear Cataract (10) Shortness of breath (11) Tremor Family History FH: HTN (hypertension) FH: cancer FH: diabetes mellitus Kidney stone Social History Smoking Status: Former Smoker Alcohol Use: occasionally Drug Use: none Marital Status: Housing Status: lives with family Occupation Status: retired Current/Historical Medications Scheduled Albuterol Hfa (Ventolin Hfa), 4 PUFFS INH Q4H Amitriptyline Hcl (Elavil), 10 MG PO HS Bupropion (Wellbutrin Sr), 150 MG PO BID Cholecalciferol (Vitamin D3), 5,000 INTER.UNIT PO DAILY Finasteride (Proscar), 5 MG PO QPM Fluticasone Propionate (Nasal) (Flonase Allergy Relief), 2 SPRAYS CARMEN DAILY Gabapentin (Gabapentin), 600 MG PO BID Lactulose (Chronulac), 20 GM PO BID Levofloxacin (Levaquin), 500 MG PO DAILY Multiple Vitamins W/ Minerals (One Daily Mens), 1 TAB PO DAILY Nutraceuticals (Nutraceuticals), 3 CAP PO DAILY Omeprazole (Prilosec), 20 MG PO DAILY Probiotic Product (Probiotic), 2 CAP PO DAILY Tamsulosin Hcl (Flomax), 0.4 MG PO BID Scheduled PRN Acetaminophen (Tylenol), 1,000 MG PO Q6H PRN for Pain Ipratropium-Albuterol (Duoneb), 3 ML INH q4-q6h PRN for cough/wheeze/shortness breath Naphazoline W/ Pheniramine (Eye Allergy Relief), 1 DROP OP UD PRN for Allergy Symptoms Allergies Coded Allergies: No Known Allergies (Unverified , 11/01/16) Physical Exam Vital Signs Date Time Temp Pulse Resp B/P (MAP) Pulse Ox O2 Delivery O2 Flow Rate FiO2 11/01/16 13:36 71 18 99/ 92 Room Air 11/01/16 12:24 96 Room Air 11/01/16 11:47 36.7 75 20 111/71 93 Room Air Physical Exam CONSTITUTIONAL/VITAL SIGNS: Reviewed / noted above. GENERAL: Non-toxic in appearance. INTEGUMENTARY: Warm, dry, and [place]. HEAD: Normocephalic. EYES: without scleral icterus or trauma. ENT/OROPHARYNX: clear and moist. LYMPHADENOPATHY/NECK: Is supple without lymphadenopathy or meningismus. RESPIRATORY: Lungs clear and equal. CARDIOVASCULAR: Regular rate and rhythm. GI/ABDOMEN: Soft and nontender. No organomegaly or pulsatile mass. No rebound or guarding. Normal bowel sounds. EXTREMITIES: Warm and well perfused. BACK: No CVA tenderness. NEUROLOGICAL: Intact without focal deficits. PSYCHIATRIC: normal affect. MUSCULOSKELETAL: Normally developed with good muscle tone. Medical Decision & Procedures ER Provider Diagnostic Interpretation: X ray results and stated below per my interpretation and radiology interpretation. CHEST ONE VIEW PORTABLE CLINICAL HISTORY: sob dyspnea COMPARISON STUDY: 07/27/2016 FINDINGS: Small parenchymal infiltrate medial right base. Mild stable cardiomegaly. Chronic pulmonary vascular congestion. IMPRESSION: Small parenchymal infiltrate medial right base. Baseline pulmonary vascular congestion. Electronically signed by: Mango Cotter M.D. 11/01/2016 12:38 PM Dictated Date/Time: 11/01/2016 12:38 PM Laboratory Results 11/01/16 12:00 Red Blood Count 4.51, Mean Corpuscular Volume 91.8, Mean Corpuscular Hemoglobin 31.0, Mean Corpuscular Hemoglobin Concent 33.8, Mean Platelet Volume 10.0, Neutrophils (%) (Auto) 80.3, Lymphocytes (%) (Auto) 13.5, Monocytes (%) (Auto) 5.5, Eosinophils (%) (Auto) 0.3, Basophils (%) (Auto) 0.1, Neutrophils # (Auto) 11.16, Lymphocytes # (Auto) 1.88, Monocytes # (Auto) 0.76, Eosinophils # (Auto) 0.04, Basophils # (Auto) 0.01 11/01/16 12:00 Test 11/01/16 12:00 White Blood Count 13.89 K/uL (4.8-10.8) Red Blood Count 4.51 M/uL (4.7-6.1) Hemoglobin 14.0 g/dL (14.0-18.0) Hematocrit 41.4 % (42-52) Mean Corpuscular Volume 91.8 fL (80-100) Mean Corpuscular Hemoglobin 31.0 pg (25-34) Mean Corpuscular Hemoglobin Concent 33.8 g/dl (32-36) Platelet Count 187 K/uL (130-400) Mean Platelet Volume 10.0 fL (7.4-10.4) Neutrophils (%) (Auto) 80.3 % Lymphocytes (%) (Auto) 13.5 % Monocytes (%) (Auto) 5.5 % Eosinophils (%) (Auto) 0.3 % Basophils (%) (Auto) 0.1 % Neutrophils # (Auto) 11.16 K/uL (1.4-6.5) Lymphocytes # (Auto) 1.88 K/uL (1.2-3.4) Monocytes # (Auto) 0.76 K/uL (0.11-0.59) Eosinophils # (Auto) 0.04 K/uL (0-0.5) Basophils # (Auto) 0.01 K/uL (0-0.2) RDW Standard Deviation 46.7 fL (36.4-46.3) RDW Coefficient of Variation 13.9 % (11.5-14.5) Immature Granulocyte % (Auto) 0.3 % Immature Granulocyte # (Auto) 0.04 K/uL (0.00-0.02) Prothrombin Time 10.7 SECONDS (9.0-12.0) Prothromb Time International Ratio 1.0 (0.9-1.1) Activated Partial Thromboplast Time 29.4 SECONDS (21.0-31.0) Partial Thromboplastin Ratio 1.1 Anion Gap 9.0 mmol/L (3-11) Est Creatinine Clear Calc Drug Dose 46.1 ml/min Estimated GFR () 57.3 Estimated GFR (Non- 49.4 BUN/Creatinine Ratio 11.6 (10-20) Calcium Level 9.3 mg/dl (8.5-10.1) Total Bilirubin 1.0 mg/dl (0.2-1) Aspartate Amino Transf (AST/SGOT) 15 U/L (15-37) Alanine Aminotransferase (ALT/SGPT) 16 U/L (12-78) Alkaline Phosphatase 85 U/L (45-117) Total Creatine Kinase 65 U/L (39-308) Creatine Kinase MB 1.0 ng/ml (0.5-3.6) Creatine Kinase MB Ratio 1.5 (0-3.0) Troponin I < 0.015 ng/ml (0-0.045) Total Protein 7.2 gm/dl (6.4-8.2) Albumin 3.2 gm/dl (3.4-5.0) Globulin 4.0 gm/dl (2.5-4.0) Albumin/Globulin Ratio 0.8 (0.9-2) Laboratory results as stated above per my review. Medications Administered Medications (Trade) Dose Ordered Sig/Cyn Route Start Time Stop Time Status Last Admin Dose Admin Albuterol/ Ipratropium (Duoneb) 3 ml NOW STAT INH 11/01/16 12:08 11/01/16 12:10 DC 11/01/16 12:39 3 ML ECG Indication: chest pain Rate (beats per minute): 70 Rhythm: normal sinus Findings: no acute ischemic change, no ectopy ED Course 1208: Previous medical records were reviewed. The patient was evaluated in room C03. A complete history and physical examination was performed. 1208: DuoNeb 3 ml INH 1425: Levofloxacin 500 mg PO 1431: On reevaluation, the patient is resting comfortably. I discussed the results and findings with the patient. He verbalized agreement of the treatment plan. He was discharged home. Medical Decision the differential was considered includes acute myocardial infarction, acute coronary syndrome, myocarditis, pericarditis, pericardial effusions /tamponad, esophageal perforation, pulmonary embolism, pneumonia, pneumothorax, cardiomyopathy, congestive heart, anemia , COPD/asthma exacerbation. Medication Reconciliation: I attest that I have personally reviewed the patient' s current medication list. Blood pressure Screening: Patient was found to have normal blood pressure on screening and does not require follow-up. This is a 6-year-old male who presents to the ED with a chief complaint of a cough. The patient has been having a cough with yellow phlegm over the past 3 days. He denies any shortness of breath. He has not had high fevers, vomiting or other significant symptoms. His vital signs are normal. His physical exam did not show any significant abnormalities. He is in no distress. His breathing appears comfortable. His EKG shows a normal sinus rhythm. White blood cell count was slightly elevated. Chemistry panel was unremarkable. A chest x-ray reveals a small pneumonia. He was started on Levaquin by mouth here. He was discharged on this. He will follow-up with his PCP for recheck or return for worsening. Impression Primary Impression: Pneumonia Scribe Attestation The scribe's documentation has been prepared under my direction and personally reviewed by me in its entirety. I confirm that the note above accurately reflects all work, treatment, procedures, and medical decision making performed by me. Departure Information Dispostion Home / Self-Care Prescriptions Levofloxacin (Levaquin) 500 Mg Tab 500 MG PO DAILY for 7 Days, #7 TAB Prov: Cuong Calles D.O. 11/01/16 Referrals Salome Joshi M.D. (PCP) Forms HOME CARE DOCUMENTATION FORM, IMPORTANT VISIT INFORMATION, WORK / SCHOOL INSTRUCTIONS Patient Instructions [facility], Pneumonia Additional Instructions Levaquin as prescribed. Follow-up with your doctor for further care and evaluation in 1-2 days. Return to the emergency department for worsening or new symptoms or any concerns. You have been examined and treated today on an emergency basis only. This is not a substitute for, or an effort to provide, complete comprehensive medical care. It is impossible to recognize and treat all injuries or illnesses in a single emergency department visit. It is therefore important that you follow up closely with your doctor. Call as soon as possible for an appointment.
[2016-11-01 15:32] VITALS: BP 90/64; PULSE 91; O2SAT 93
== END 2016-11-01 15:32 | disposition home or self-care (01) ==
LOC: C.EDB 11:42 → C.EDC 15:32
DX: J18.9 Pneumonia, unspecified organism (principal); J44.9 Chronic obstructive pulmonary disease, unspecified; N40.0 Benign prostatic hyperplasia without lower urinary tract symptoms; K21.9 Gastro-esophageal reflux disease without esophagitis; I10 Essential (primary) hypertension; M51.36 Other intervertebral disc degeneration, lumbar region; Z82.49 Family history of ischemic heart disease and other diseases of the circulatory system; Z80.9 Family history of malignant neoplasm, unspecified; Z83.3 Family history of diabetes mellitus; Z84.1 Family history of disorders of kidney and ureter; Z87.891 Personal history of nicotine dependence; Z79.899 Other long term (current) drug therapy

== ENCOUNTER → 2017-08-21 | Outpatient (CLI) | payer OTHER, MEDICARE ==
[~2017-08-21] MED LIST changes: +ACET-1256 PO; -ALL60 PO; +BUPR-79 PO; -CHOLCAP5 PO; -NAPHSOL OP; -NTRC PO; -VNTHFA/IN INH
== END | disposition home or self-care (01) ==
LOC: C.PATHSPEC 17:14
PROVIDERS: ATTEND Urology
DX: N40.1 Benign prostatic hyperplasia with lower urinary tract symptoms (principal)

== ENCOUNTER → 2017-09-16 | Outpatient (CLI) | payer OTHER, MEDICARE ==
--- NOTE | 2017-09-16 13:22 | DIAGNOSTIC IMAGING REPORT ---
CT SCAN OF THE CHEST WITHOUT IV CONTRAST CLINICAL HISTORY: Pulmonary nodule. COMPARISON STUDY: Chest CT scans dated 04/18/2016 and 04/01/2014. TECHNIQUE: CT scan of the thorax was performed from the thoracic inlet to the upper abdomen. Images are reviewed in the axial, sagittal, and coronal planes. IV contrast was not administered for this examination as per the referring clinician. A dose lowering technique was utilized adhering to the principles of ALARA. FINDINGS: Thyroid: Imaged portions of the thyroid gland are normal in size and attenuation. Thoracic aorta: There is mild atherosclerotic calcification of the thoracic aorta, which is normal in caliber and demonstrates standard 3-vessel arch anatomy. Heart: The heart is mildly enlarged and without pericardial effusion. The coronary arteries are densely calcified. Lungs and pleural spaces: There is biapical scarring and mild emphysematous change. No airspace consolidation or pleural effusion is identified. The trachea is clear. Secretions/fluid are noted in the right mainstem bronchus. Minimal subpleural reticulation is again seen the lung bases. No concerning pulmonary nodule is identified. A punctate calcified granuloma is incidentally noted in the left upper lobe. Mediastinum: There is no mediastinal lymphadenopathy. Sandy: Not well assessed without IV contrast. Axillae: There is no axillary lymphadenopathy. Upper abdomen: A 4 cm cyst is seen in the upper pole of the left kidney. The partially visualized kidneys demonstrate cortical atrophy. A tiny hiatal hernia is noted. Skeletal structures: The skeletal structures are osteopenic. No lytic or blastic bony lesions are seen. IMPRESSION: 1. Cardiomegaly and emphysema. 2. No airspace consolidation or pleural effusion is identified. 3. No pulmonary nodule or concerning pulmonary lesion is identified. Electronically signed by: Roque Rojas M.D. 09/16/2017 1:21 PM Dictated Date/Time: 09/16/2017 1:15 PM
== END | disposition home or self-care (01) ==
LOC: C.CTS 12:56
PROVIDERS: ATTEND Internal Medicine Critical Care Medicine
DX: J43.9 Emphysema, unspecified (principal); I51.7 Cardiomegaly; R91.1 Solitary pulmonary nodule

== ENCOUNTER 2018-07-11 14:15 | Inpatient (IN) ==
[2018-07-11] MEDS ORDERED: ACETAMINOPHEN 500 MG TAB PO STA (14:29)
[2018-07-11] MEDS ORDERED: SODIUM CHLORIDE 0.9% 1000ML 1,000 ML IV SCH (14:30)
[2018-07-11 14:37] LABS: Basophils # (auto) 0.01 K/uL (0-0.2); Basophils % (auto) 0.1 %; Eosinophils # (auto) 0.03 K/uL (0-0.5); Eosinophils % (auto) 0.2 %; Hematocrit (blood only) 45.4 % (42-52); Hemoglobin 15.4 g/dL (14.0-18.0); Immature Granulocytes # (auto) 0.03 K/uL (0.00-0.02); Immature Granulocytes % (auto) 0.2 %; Lymphocytes # (auto) 0.23 K/uL (1.2-3.4); Lymphocytes % (auto) 1.8 %; Mean Corpuscular Hgb Conc 33.9 g/dL (32-36); Mean Corpuscular Volume 95.6 fL (80-100); Mean Platelet Volume 10.7 fL (7.4-10.4); Monocytes # (auto) 0.63 K/uL (0.11-0.59); Monocytes % (auto) 4.8 %; Neutrophils # (auto) 12.21 K/uL (1.4-6.5); Neutrophils % (auto) 92.9 %; Platelet Count 154 K/uL (130-400); RDW Coefficient of Variation 13.2 % (11.5-14.5); RDW Standard Deviation 46.2 fL (36.4-46.3); Red Blood Count 4.75 M/uL (4.7-6.1); White Blood Count 13.14 K/uL (4.8-10.8)
[2018-07-11] MEDS ORDERED: ALBUT/IPRATROP 3MG/0.5MG NEB 3 ML VIAL NEB STA (14:37)
[2018-07-11 14:54] LABS: Alanine Aminotransferase 21 U/L (12-78); Albumin Level 3.4 gm/dl (3.4-5.0); Aspartate Aminotransferase 20 U/L (15-37); Blood Urea Nitrogen 11 mg/dl (7-18); Carbon Dioxide 26 mmol/L (21-32); Chloride 107 mmol/L (98-107); Est GFR (African American) 52.5; Est GFR (Non-African American) 45.3; Glucose 125 mg/dl (70-99); Sodium 139 mmol/L (136-145)
[2018-07-11 15:05] LABS: Albumin Globulin Ratio 0.9 (0.9-2); Alkaline Phosphatase 116 U/L (45-117); Bilirubin,Total 0.8 mg/dl (0.2-1); Globulin 3.6 gm/dl (2.5-4.0); Troponin I < 0.015 ng/ml (0-0.045)
--- NOTE | 2018-07-11 15:16 | Emergency Department Note ---
Entered by Kevin Osorio acting as a scribe for ED Provider Note CHIEF COMPLAINT: Altered mental status HISTORY OF PRESENT ILLNESS: The patient is an 88 year old male who presents to the ED with complaints of alerted mental status that started this morning per the patient's daughter. He was just discharged this morning after being hospitalized for right hip pain and shingles. He was also diagnosed with pneumonia and was prescribed Zithromax , Acyclovir, and Rocephin. He had a CT done of his chest that showed a possible internal hernia with no obstruction. He also had a chest xray that was unremarkable. Both his blood work and flu was negative. Currently the patient is not acting like himself and does not know the year. Per the daughter, he was not talking right on the phone and kept dropping it. The patient also has a fever and hypotension, as well as having a low pulse ox on the way here so he received a duoneb from EMS. He does not report any pain but he did take a tramadol prior to arrival. HPI is limited secondary to delirium. Pt denies LOC, headache, fevers, chills, diaphoresis, visual changes, neck pain , chest pain, breathing difficulties, nausea, vomiting, abdominal pain, back pain, melena, hematochezia, urinary symptoms, numbness, weakness, lymphadenopathy, rash, or other complaints. REVIEW OF SYSTEMS: See HPI for pertinent positives and negatives. A total of ten systems were reviewed and were otherwise negative. PMHx/PSHx: COPD, hypertension, chronic back pain, tremor, BPH, and hematuria. SOCIAL HISTORY: Patient lives at home. PHYSICAL EXAM: GENERAL: Awake, alert, well-appearing, in no distress HENT: Normocephalic, atraumatic. Oropharynx unremarkable. EYES: Normal conjunctiva. Sclera non-icteric. NECK: Inspection normal. Non-tender. Supple. No nuchal rigidity. FROM. No masses. RESPIRATORY: Clear to auscultation. No wheezes. No rales. Normal respiratory effort. CARDIAC: Normal rate. Normal rhythm. No murmurs. No rubs. Extremities warm and well perfused. Pulses equal. No JVD. GI: Soft, non-distended. No tenderness to palpation. No rebound or guarding. No masses. RECTAL: Deferred. MUSCULOSKELETAL: Atraumatic. Chest examination reveals no tenderness. The back is symmetrical on inspection without obvious abnormality. There is no CVA tenderness to palpation. No joint edema. LOWER EXTREMITIES: Calves are equal size bilaterally and non-tender. No edema. No discoloration. NEURO: Altered sensorium. No sensory or motor deficits noted. SKIN: No jaundice noted. Vesicular rash on the epigastrium on the right side. EMERGENCY DEPARTMENT COURSE: 1427: Past medical records reviewed. The patient was evaluated in room A03, and a complete history and physical examination were performed. 1648: I reevaluated the patient and updated him and the family on the plan. 1710: I spoke to Dr. Estevez - [facility] Hospitalist about the patient's case and he is going to accept him for further evaluation. MEDICAL DECISION MAKING: Prior records/ancillary studies reviewed and summarized above. Nursing notes reviewed and agree them. Additional history obtained from the patient's daughter. The patient's history was concerning for altered mental status. Differential diagnosis: Etiologies such as infection, hypoglycemia, electrolyte abnormalities, cardiac sources, intracerebral event, toxicologic, neurologic, as well as others were entertained. Physical examination: As above. Patient was febrile. He was confused. ER treatment provided: IV Lock Normal saline hydration Oral Tylenol On reassessment the patient felt better. Fever broke. Diagnostics interpretation by me: ECG: No acute disc The labs revealed the development of a leukocytosis. Chemistry panel and troponin were negative. PCR flu testing negative. Imaging studies: Chest imaging shows increased congestion in the lower lungs. Radiology commented on possible atelectasis. Given the patient's fever and symptoms this is concerning for possible developing pneumonia. The patient received Rocephin and Zithromax earlier this morning. He developed fever and became delirious. He is doing better after resolution of fever. The patient's blood pressure is mildly low. Lactate negative. He will need to be watched in the hospital. The patient and daughter feel comfortable with this plan. Consultation: A consultation was placed with the hospitalist. The case was discussed and diagnostics were reviewed. The patient was evaluated in the ER for further treatment. IMPRESSION: Altered mental status Fever Pneumonia Hypoxia PLAN: Evaluated by hospitalist The scribe's documentation has been prepared under my direction and personally reviewed by me in its entirety. I confirm that the note above accurately reflects all work, treatment, procedures, and medical decision making performed by me. Impression & Plan Altered mental status, Fever, Hypoxia, Acute pneumonia Past Med/Surg History Social History marital status: / Current Living Situation: Family Current Living Situation Comment: Son Cuong lives with patient current occupational status: retired Other Information That Helps Us Care for You: No Feels Safe at Home: Yes Safety Concerns: Feels Safe At This Time Smoking Status: Former smoker Tobacco Type: cigarettes Do You Dip or Chew Tobacco: No Second Hand Exposure: No Tobacco Cessation Education Requested by Patient: Yes Hx Alcohol Use: Yes Alcohol type: hard liquor Alcohol Intake Frequency: 0-2 drinks per day Hx Substance Use: No Beliefs That Will Affect Care: None Communication Ability: Effective Adjunct Instructor Required: No Results & Data Vital Signs Vital Signs - 24 hr 07/11/18 14:29 07/11/18 14:35 07/11/18 15:57 Temperature 39.3 C H Temperature Source Oral Sepsis Recent Fever Within 48 Hours Yes Sepsis New/Unexplained Change in Mental Status Yes Sepsis Action Taken by Nursing No Action Required Pulse Rate 101 H 101 H Pulse Rate [Apical] 93 H Respiratory Rate 22 24 20 Respiratory Effort / Characteristics Respiratory Depth Respiratory Pattern Blood Pressure 104/54 L Blood Pressure [Left Arm] 100/53 L Blood Pressure [Right Arm] Blood Pressure Mean 70 Blood Pressure Mean [Left Arm] 68 Blood Pressure Mean [Right Arm] Blood Pressure Position Lying Blood Pressure Position [Left Arm] Blood Pressure Position [Right Arm] Pulse Oximetry 90 90 93 Oxygen Delivery Method Room Air Room Air Nasal Cannula Oxygen Flow Rate 2 07/11/18 16:49 07/11/18 17:50 07/11/18 18:14 Temperature 37.0 C Temperature Source Oral Sepsis Recent Fever Within 48 Hours Sepsis New/Unexplained Change in Mental Status Sepsis Action Taken by Nursing Pulse Rate 90 Pulse Rate [Apical] 88 84 Respiratory Rate 20 20 18 Respiratory Effort / Characteristics Respiratory Depth Respiratory Pattern Blood Pressure 108/84 Blood Pressure [Left Arm] 95/52 L 106/64 Blood Pressure [Right Arm] Blood Pressure Mean Blood Pressure Mean [Left Arm] 66 78 Blood Pressure Mean [Right Arm] Blood Pressure Position Blood Pressure Position [Left Arm] Blood Pressure Position [Right Arm] Pulse Oximetry 20 L 94 94 Oxygen Delivery Method Nasal Cannula Nasal Cannula Oxygen Flow Rate 2 2 07/11/18 18:31 07/11/18 18:44 02/23/19 19:13 Temperature 36.9 C 36.9 C Temperature Source Oral Oral Sepsis Recent Fever Within 48 Hours Sepsis New/Unexplained Change in Mental Status Sepsis Action Taken by Nursing Pulse Rate Pulse Rate [Apical] 88 89 Respiratory Rate 20 20 Respiratory Effort / Characteristics Non-Labored Spontaneous Non-Labored Spontaneous Respiratory Depth Normal Normal Respiratory Pattern Regular Regular Blood Pressure Blood Pressure [Left Arm] 108/74 108/74 Blood Pressure [Right Arm] Blood Pressure Mean Blood Pressure Mean [Left Arm] 85 85 Blood Pressure Mean [Right Arm] Blood Pressure Position Blood Pressure Position [Left Arm] Sitting Sitting Blood Pressure Position [Right Arm] Pulse Oximetry 92 92 Oxygen Delivery Method Nasal Cannula Nasal Cannula Nasal Cannula Oxygen Flow Rate 2 2 2 07/11/18 19:26 07/11/18 19:43 Temperature 36.9 C Temperature Source Oral Sepsis Recent Fever Within 48 Hours Sepsis New/Unexplained Change in Mental Status Sepsis Action Taken by Nursing Pulse Rate Pulse Rate [Apical] 84 Respiratory Rate 18 Respiratory Effort / Characteristics Non-Labored Spontaneous SOB on Exertion Normal for Patient Respiratory Depth Normal Normal Respiratory Pattern Regular Blood Pressure Blood Pressure [Left Arm] Blood Pressure [Right Arm] 122/57 L Blood Pressure Mean Blood Pressure Mean [Left Arm] Blood Pressure Mean [Right Arm] 78 Blood Pressure Position Blood Pressure Position [Left Arm] Blood Pressure Position [Right Arm] Lying Pulse Oximetry 95 Oxygen Delivery Method Nasal Cannula Nasal Cannula Oxygen Flow Rate 2 2 Home Medications Current Medication List: was personally reviewed by me Laboratory Data Attestation: I reviewed the patient's lab results. Result diagrams: 07/11/18 14:15 07/11/18 14:15 Lab Results 07/11/18 07/11/18 07/11/18 Range/Units 14:15 14:15 14:15 WBC 13.14 H (4.8-10.8) K/uL RBC 4.75 (4.7-6.1) M/uL Hgb 15.4 (14.0-18.0) g/dL Hct 45.4 (42-52) % MCV 95.6 (80-100) fL MCH 32.4 (25-34) pg MCHC 33.9 (32-36) g/dL RDW Std Deviation 46.2 (36.4-46.3) fL RDW Coeff of Marco Antonio 13.2 (11.5-14.5) % Plt Count 154 (130-400) K/uL MPV 10.7 H (7.4-10.4) fL Immature Gran % (Auto) 0.2 % Neut % (Auto) 92.9 % Lymph % (Auto) 1.8 % Summit % (Auto) 4.8 % Eos % (Auto) 0.2 % Baso % (Auto) 0.1 % Immature Gran # (Auto) 0.03 H (0.00-0.02) K/uL Neut # (Auto) 12.21 H (1.4-6.5) K/uL Lymph # (Auto) 0.23 L (1.2-3.4) K/uL Summit # (Auto) 0.63 H (0.11-0.59) K/uL Eos # (Auto) 0.03 (0-0.5) K/uL Baso # (Auto) 0.01 (0-0.2) K/uL PT (9.0-12.0) Seconds INR (0.9-1.1) Sodium 139 (136-145) mmol/L Potassium 4.0 (3.5-5.1) mmol/L Chloride 107 (98-107) mmol/L Carbon Dioxide 26 (21-32) mmol/L Anion Gap 6.0 (3-11) BUN 11 (7-18) mg/dl Creatinine 1.38 D (0.6-1.4) mg/dl Est Cr Clr Drug Dosing 43.0 ml/min Est GFR ( Amer) 52.5 Est GFR (Non-Af Amer) 45.3 BUN/Creatinine Ratio 8.0 L (10-20) Glucose 125 H (70-99) mg/dl POC Glucose (70-99) POC Lactic Acid Carlos (0.90-1.70) mmol/L Calcium 9.0 (8.5-10.1) mg/dl Magnesium 2.0 (1.8-2.4) mg/dl Total Bilirubin 0.8 (0.2-1) mg/dl AST 20 (15-37) U/L ALT 21 (12-78) U/L Alkaline Phosphatase 116 (45-117) U/L Troponin I < 0.015 Cancelled (0-0.045) ng/ml Total Protein 7.0 (6.4-8.2) gm/dl Albumin 3.4 (3.4-5.0) gm/dl Globulin 3.6 (2.5-4.0) gm/dl Albumin/Globulin Ratio 0.9 (0.9-2) TSH 0.500 (0.300-4.500) uIu/ml Influenza Type A (PCR) (Neg) Influenza Type B (PCR) (Neg) 07/11/18 07/11/18 07/11/18 Range/Units 14:15 14:27 15:05 WBC (4.8-10.8) K/uL RBC (4.7-6.1) M/uL Hgb (14.0-18.0) g/dL Hct (42-52) % MCV (80-100) fL MCH (25-34) pg MCHC (32-36) g/dL RDW Std Deviation (36.4-46.3) fL RDW Coeff of Marco Antonio (11.5-14.5) % Plt Count (130-400) K/uL MPV (7.4-10.4) fL Immature Gran % (Auto) % Neut % (Auto) % Lymph % (Auto) % Summit % (Auto) % Eos % (Auto) % Baso % (Auto) % Immature Gran # (Auto) (0.00-0.02) K/uL Neut # (Auto) (1.4-6.5) K/uL Lymph # (Auto) (1.2-3.4) K/uL Summit # (Auto) (0.11-0.59) K/uL Eos # (Auto) (0-0.5) K/uL Baso # (Auto) (0-0.2) K/uL PT 10.4 (9.0-12.0) Seconds INR 1.0 (0.9-1.1) Sodium (136-145) mmol/L Potassium (3.5-5.1) mmol/L Chloride (98-107) mmol/L Carbon Dioxide (21-32) mmol/L Anion Gap (3-11) BUN (7-18) mg/dl Creatinine (0.6-1.4) mg/dl Est Cr Clr Drug Dosing ml/min Est GFR ( Amer) Est GFR (Non-Af Amer) BUN/Creatinine Ratio (10-20) Glucose (70-99) mg/dl POC Glucose 127 H (70-99) POC Lactic Acid Carlos (0.90-1.70) mmol/L Calcium (8.5-10.1) mg/dl Magnesium (1.8-2.4) mg/dl Total Bilirubin (0.2-1) mg/dl AST (15-37) U/L ALT (12-78) U/L Alkaline Phosphatase (45-117) U/L Troponin I (0-0.045) ng/ml Total Protein (6.4-8.2) gm/dl Albumin (3.4-5.0) gm/dl Globulin (2.5-4.0) gm/dl Albumin/Globulin Ratio (0.9-2) TSH (0.300-4.500) uIu/ml Influenza Type A (PCR) Neg for Influ A (Neg) Influenza Type B (PCR) Neg for Influ B (Neg) 07/11/18 Range/Units 15:05 WBC (4.8-10.8) K/uL RBC (4.7-6.1) M/uL Hgb (14.0-18.0) g/dL Hct (42-52) % MCV (80-100) fL MCH (25-34) pg MCHC (32-36) g/dL RDW Std Deviation (36.4-46.3) fL RDW Coeff of Marco Antonio (11.5-14.5) % Plt Count (130-400) K/uL MPV (7.4-10.4) fL Immature Gran % (Auto) % Neut % (Auto) % Lymph % (Auto) % Summit % (Auto) % Eos % (Auto) % Baso % (Auto) % Immature Gran # (Auto) (0.00-0.02) K/uL Neut # (Auto) (1.4-6.5) K/uL Lymph # (Auto) (1.2-3.4) K/uL Summit # (Auto) (0.11-0.59) K/uL Eos # (Auto) (0-0.5) K/uL Baso # (Auto) (0-0.2) K/uL PT (9.0-12.0) Seconds INR (0.9-1.1) Sodium (136-145) mmol/L Potassium (3.5-5.1) mmol/L Chloride (98-107) mmol/L Carbon Dioxide (21-32) mmol/L Anion Gap (3-11) BUN (7-18) mg/dl Creatinine (0.6-1.4) mg/dl Est Cr Clr Drug Dosing ml/min Est GFR ( Amer) Est GFR (Non-Af Amer) BUN/Creatinine Ratio (10-20) Glucose (70-99) mg/dl POC Glucose (70-99) POC Lactic Acid Carlos 1.23 (0.90-1.70) mmol/L Calcium (8.5-10.1) mg/dl Magnesium (1.8-2.4) mg/dl Total Bilirubin (0.2-1) mg/dl AST (15-37) U/L ALT (12-78) U/L Alkaline Phosphatase (45-117) U/L Troponin I (0-0.045) ng/ml Total Protein (6.4-8.2) gm/dl Albumin (3.4-5.0) gm/dl Globulin (2.5-4.0) gm/dl Albumin/Globulin Ratio (0.9-2) TSH (0.300-4.500) uIu/ml Influenza Type A (PCR) (Neg) Influenza Type B (PCR) (Neg) Administered Medications Amitriptyline HCl (Elavil) 50 mg PO HS ADITYA Stop: 08/10/18 20:59 Last Admin: 07/11/18 20:42 Dose: 50 mg Budesonide/Formoterol Fumarate (Symbicort 80mcg/4.5mcg) 2 puffs INH BID ADITYA Stop: 08/10/18 20:59 Last Admin: 07/11/18 20:43 Dose: 2 puffs Gabapentin (Neurontin) 900 mg PO TID ADITYA Stop: 08/10/18 20:59 Last Admin: 07/11/18 20:42 Dose: 900 mg Sodium Chloride (Nss 1000ml) 1,000 mls @ 100 mls/hr IV .Q10H ADITYA Stop: 08/10/18 19:59 Last Admin: 07/11/18 20:41 Dose: 100 mls/hr Discontinued Medications Acetaminophen (Tylenol) 1,000 mg PO NOW STA Stop: 02/23/19 14:30 Last Admin: 07/11/18 14:43 Dose: 1,000 mg Albuterol (Duoneb) 3 ml NEB NOW STA Stop: 07/11/18 14:38 Last Admin: 07/11/18 14:43 Dose: 3 ml Sodium Chloride (Nss 1000ml) 1,000 mls @ 125 mls/hr IV .Q8H ADITYA Stop: 07/11/18 22:29 Last Admin: 07/11/18 14:43 Dose: 125 mls/hr Sodium Chloride (Nss 1000ml) 500 mls @ 999 mls/hr IV .Q31M ONE Stop: 07/11/18 17:31 Last Admin: 07/11/18 17:04 Dose: 999 mls/hr Imaging Data Radiologist's Impression: Radiology results as stated below per my review and the radiologist's interpretation: XR chest 1V portable HISTORY: 88 years-old Male weakness acute weakness COMPARISON: Chest radiograph 07/11/2018 at 2:[address] abdomen and pelvis of same day TECHNIQUE: Portable AP view of the chest FINDINGS: Cardiac silhouette is enlarged. Pulmonary vascular congestion with mild interstitial coarsening is new from prior. Progressive bibasilar opacities, left greater than right without pneumothorax. Suggestion of a trace left pleural effusion. Degenerative changes of the shoulders and spine. IMPRESSION: 1. Cardiomegaly with interval development of mild pulmonary edema. 2. Progressive bibasilar opacities suggest atelectasis. 3. Trace left pleural effusion. The above report was generated using voice recognition software. It may contain grammatical, syntax or spelling errors. Electronically signed by: Jacek Horton M.D. 07/11/2018 3:[address] head/brain wo con CLINICAL HISTORY: 88 years-old Male with AMS, fever. Acute fever with altered mental status TECHNIQUE: Multiple axial CT images of the head were obtained without contrast. A dose lowering technique was utilized adhering to the principles of ALARA. CT DOSE: 537.48 mGy.cm COMPARISON: CT head 07/27/2016. FINDINGS: No acute intracranial hemorrhage, midline shift, intracranial mass, hydrocephalus, territorial ischemia or abnormal extra-axial collection. Age- related involutional changes. White matter hypodensities are suggestive of chronic microvascular ischemic changes. The calvarium is intact. Mild mucosal thickening of the maxillary sinuses with mild to moderate ethmoid sinus mucosal thickening. Mastoid air cells are clear. Soft tissues and orbits are unremarkable. IMPRESSION: No acute intracranial abnormality. The above report was generated using voice recognition software. It may contain grammatical, syntax or spelling errors. Electronically signed by: Jacek Horton M.D. 07/11/2018 3:48 PM ECG Data Attestation: I personally reviewed and interpreted this ECG as follows: Indication: altered mental status Rate (beats per minute): 101 Rhythm: sinus tachycardia Findings: no PAC, no PVC, no ST depression and no ST elevation Blood Pressure Blood Pressure Findings: Normal blood pressure Blood Pressure Disposition: further management by hospitalist Discharge Plan Visit Data *Final* Discharge Date/Time: 07/11/18 18:14 Chief Complaint: Altered Mental Status ED Provider: Madhu Segovia Discharge Problem: Altered mental status, Fever, Hypoxia, Acute pneumonia Patient Disposition: Home - Self-Care Discharge Instructions Interventions: ED Discharge Assessment Last Done: 07/11/18 18:14 The scribe's documentation has been prepared under my direction and personally reviewed by me in its entirety. I confirm that the note above accurately reflects all work, treatment, procedures, and medical decision making performed by me.
--- NOTE | 2018-07-11 15:17 | XRay Report ---
XR chest 1V portable HISTORY: 88 years-old Male weakness acute weakness COMPARISON: Chest radiograph 07/11/2018 at 2:[address] abdomen and pelvis of same day TECHNIQUE: Portable AP view of the chest FINDINGS: Cardiac silhouette is enlarged. Pulmonary vascular congestion with mild interstitial coarsening is ne w from prior. Progressive bibasilar opacities, left greater than right without pneumothorax. Suggesti on of a trace left pleural effusion. Degenerative changes of the shoulders and spine. IMPRESSION: 1. Cardiomegaly with interval development of mild pulmonary edema. 2. Progressive bibasilar opacities suggest atelectasis. 3. Trace left pleural effusion. The above report was generated using voice recognition software. It may contain grammatical, syntax o r spelling errors. Electronically signed by: Jacek Horton M.D. 07/11/2018 3:16 PM
--- NOTE | 2018-07-11 15:50 | CT Scan Report ---
CT head/brain wo con CLINICAL HISTORY: 88 years-old Male with AMS, fever. Acute fever with altered mental status TECHNIQUE: Multiple axial CT images of the head were obtained without contrast. A dose lowering tech nique was utilized adhering to the principles of ALARA. CT DOSE: 537.48 mGy.cm COMPARISON: CT head 07/27/2016. FINDINGS: No acute intracranial hemorrhage, midline shift, intracranial mass, hydrocephalus, territorial ischem ia or abnormal extra-axial collection. Age-related involutional changes. White matter hypodensities a re suggestive of chronic microvascular ischemic changes. The calvarium is intact. Mild mucosal thickening of the maxillary sinuses with mild to moderate ethm oid sinus mucosal thickening. Mastoid air cells are clear. Soft tissues and orbits are unremarkable. IMPRESSION: No acute intracranial abnormality. The above report was generated using voice recognition software. It may contain grammatical, syntax o r spelling errors. Electronically signed by: Jacek Horton M.D. 07/11/2018 3:48 PM
[2018-07-11 15:53] LABS: Influenza A virus by PCR Neg for Influ A (Neg); Influenza B virus by PCR Neg for Influ B (Neg)
[2018-07-11] MEDS ORDERED: SODIUM CHLORIDE 0.9% 1000ML 500 ML IV ONE (17:01)
--- NOTE | 2018-07-11 18:29 | History & Physical Report ---
Date of Service July 11, 2018 Assessment & Plan (1) Altered mental status: per patient's family, he cannot recall some of the events from yesterday or this morning they say he has a degree of cognitive impairment, but not this bad represents an abrupt change CT head normal likely metabolic encephalopathy in setting of fever, infection, dehydration look for improvement with proper treatment and supportive care (2) Pneumonia: left lower lobe, was sent home on Zithromax after dose of rocephin in the ED had fever and worsening dyspnea despite antibiotics transient oxygen desaturation at home WBC is 13k, infiltrate in left base on CXR will treat with Levaquin IV 750mg daily since he had a fever after Zithromax and Rocephin check CBC daily follow for improvement in respiratory symptoms NSS at 100cc/hr (3) Shingles: vesicular rash on abdomen, erythema in midline just inferior to sternum, several vesicles yesterday and this morning he had severe right flank pain, could correspond with this dermatome look for appearance of further vesicular rash continue Valtrex that was started yesterday by the ER 1000mg q8 x 7 days total (4) Hypertension: no home medications, BP actually low normal in the ED (5) Chronic back pain: no current back pain at time of admission (6) Fever: due to pneumonia, treat infection (7) Dehydration: NSS at 100cc/hr Cr is slightly higher than yesterday but no signs of JESUS follow UO (8) BPH (benign prostatic hyperplasia): continue Finasteride, Flomax (9) COPD (chronic obstructive pulmonary disease): continue maintenance inhalers with Budesonide-Formoterol Duoneb Q4 PRN minimal expiratory wheezing, no distress would not use steroids at this time, breathing is stable History of Present Illness Chief Complaint: I had a fever at home Primary Care Provider: Ean Arauz, DO 88 yo male with history of mild cognitive impairment, COPD, tobacco abuse, BPH who returns to the ED after being discharged yesterday, treated for community acquired pneumonia. The patient was noted to have a vesicular rash on upper abdomen and right flank pain. Was treated with Valtrex. He was treated with Azithromcyin for the pneumonia. The patient went home but he started to act slightly confused according to family. He was not eating or drinking well. He had a fever at home and sweats and chills. He felt slightly more short of breath but not severe. He had a nonproductive cough. Flu testing was negative. CXR shows bibasilar infiltrates, left side more predominant. He was given Tylenol for a fever and in improved. He had a leukocytosis of 13k. Cr was up slightly to 1.38 from 1.00. His family says that he was acting confused from the time he got home. His speech was slightly garbled. He cannot give any specific details about his time at home, about his symptoms, about his recent history. Allergies Allergy/AdvReac Type Severity Reaction Status Date / Time No Known Allergies Allergy Verified 07/11/18 14:27 Home Medications Home Medications Medication Instructions Recorded Confirmed Type acetaminophen 500 mg capsule 1,000 mg PO Q6H PRN cap 05/14/18 07/11/18 History budesonide-formoterol HFA 80 2 puffs INH BID 05/14/18 07/11/18 History mcg-4.5 mcg/actuation aerosol inhaler cholecalciferol (vitamin D3) 5,000 5,000 units PO DAILY 05/14/18 07/11/18 History unit capsule finasteride 5 mg tablet 5 mg PO PM tab 05/14/18 07/11/18 History fluticasone 50 mcg/actuation nasal 2 sprays INTNAS DAILY 05/14/18 07/11/18 History spray,suspension omeprazole 20 mg capsule,delayed 20 mg PO DAILY 05/14/18 07/11/18 History release oxybutynin chloride 5 mg tablet 5 mg PO DAILY tab 05/14/18 07/11/18 History tamsulosin 0.4 mg capsule 0.4 mg PO DAILY 05/14/18 07/11/18 History amitriptyline 50 mg tablet 50 mg PO HS #90 tab 05/15/18 07/11/18 Rx gabapentin 300 mg capsule 900 mg PO TID cap 05/15/18 07/11/18 History Bio Cleanse 1 dose PO DAILY 07/11/18 07/11/18 History Pro Cleanse 1 dose PO DAILY 07/11/18 07/11/18 History doxycycline hyclate 100 mg PO Q12H 7 Days #14 tab 07/11/18 07/11/18 Rx food supplemt, lactose-reduced 1 btl PO DAILY 07/11/18 07/11/18 History [Boost] lactulose [Enulose] 15 ml PO DAILY 07/11/18 07/11/18 History multivitamin [One Daily 1 tab PO DAILY 07/11/18 07/11/18 History Multivitamin] peg [id number] [Eye 2 drp OPHTHALMIC (EYE) DIRECTED 07/11/18 07/11/18 History Drop Tears] PRN psyllium husk [Metamucil] 1 dose PO DIRECTED 07/11/18 07/11/18 History valacyclovir 1,000 mg PO Q8H 7 Days #21 tab 07/11/18 07/11/18 Rx Past Med/Surg History Social History marital status: / Current Living Situation: Family Current Living Situation Comment: Kristopher Hutchins lives with patient current occupational status: retired Other Information That Helps Us Care for You: No Feels Safe at Home: Yes Safety Concerns: Feels Safe At This Time Smoking Status: Former smoker Tobacco Type: cigarettes Do You Dip or Chew Tobacco: No Second Hand Exposure: No Tobacco Cessation Education Requested by Patient: Yes Hx Alcohol Use: Yes Alcohol type: hard liquor Alcohol Intake Frequency: 0-2 drinks per day Hx Substance Use: No Beliefs That Will Affect Care: None Communication Ability: Effective Veterinary Surgeon Required: No Review of Systems All systems reviewed & are unremarkable except as noted in HPI & below Constitutional: + fever, + chills, + sweats, + fatigue and + weakness Respiratory: + cough, + dyspnea and + dyspnea on exertion Cardiovascular: no chest pain Integumentary: + rash (midline) Physical Exam 2 Vital Signs (Past 24 Hours): Last Vital Signs Temp 37.0 C 07/11/18 16:49 Pulse 84 07/11/18 17:50 Resp 20 07/11/18 17:50 BP 106/64 07/11/18 17:50 Pulse Ox 94 07/11/18 17:50 Constitutional: WD/WN, vitals as above Eyes: PERRL, conjunctivae normal, anicteric sclerae ENMT: external ear and nose normal, oropharynx normal Neck: trachea midline, no thyromegaly Respiratory: normal respiratory effort and + cough; no respiratory distress and no labored breathing Auscultation: + rhonchi and + wheezes (faint, end exhalation) Cardiovascular: RRR, no murmur, no edema Gastrointestinal (Abdomen): normal bowel sounds, soft, nontender, no hepatosplenomegaly Musculoskeletal: no cyanosis or clubbing, extremities motor strength 5/5 Skin: + rash (in midline, inferior to sternum, erythema with 4-5 clear vesicles) Neurologic: patellar DTR's 2+ bilat, sensation intact and PERRL, EOMI, accommodation nl, no face palsy, no dysarthria Psychiatric: Orientation: alert, oriented to person and cooperative; + not oriented to place and + not oriented to time Lymphatic: no cervical or axillary lymphadenopathy Results & Data Laboratory Results Laboratory Results - last 24 hr 07/11/18 07/11/18 07/11/18 14:15 14:15 14:15 WBC 13.14 H RBC 4.75 Hgb 15.4 Hct 45.4 MCV 95.6 MCH 32.4 MCHC 33.9 RDW Std Deviation 46.2 RDW Coeff of Marco Antonio 13.2 Plt Count 154 MPV 10.7 H Immature Gran % (Auto) 0.2 Neut % (Auto) 92.9 Lymph % (Auto) 1.8 [place] % (Auto) 4.8 Eos % (Auto) 0.2 Baso % (Auto) 0.1 Immature Gran # (Auto) 0.03 H Neut # (Auto) 12.21 H Lymph # (Auto) 0.23 L [place] # (Auto) 0.63 H Eos # (Auto) 0.03 Baso # (Auto) 0.01 Sodium 139 Potassium 4.0 Chloride 107 Carbon Dioxide 26 Anion Gap 6.0 BUN 11 Creatinine 1.38 D Est Cr Clr Drug Dosing 43.0 Est GFR ( Amer) 52.5 Est GFR (Non-Af Amer) 45.3 BUN/Creatinine Ratio 8.0 L Glucose 125 H POC Glucose POC Lactic Acid Carlos Calcium 9.0 Magnesium 2.0 Total Bilirubin 0.8 AST 20 ALT 21 Alkaline Phosphatase 116 Troponin I < 0.015 Cancelled Total Protein 7.0 Albumin 3.4 Globulin 3.6 Albumin/Globulin Ratio 0.9 TSH 0.500 Influenza Type A (PCR) Influenza Type B (PCR) 07/11/18 07/11/18 07/11/18 14:27 15:05 15:05 WBC RBC Hgb Hct MCV MCH MCHC RDW Std Deviation RDW Coeff of Marco Antonio Plt Count MPV Immature Gran % (Auto) Neut % (Auto) Lymph % (Auto) [place] % (Auto) Eos % (Auto) Baso % (Auto) Immature Gran # (Auto) Neut # (Auto) Lymph # (Auto) [place] # (Auto) Eos # (Auto) Baso # (Auto) Sodium Potassium Chloride Carbon Dioxide Anion Gap BUN Creatinine Est Cr Clr Drug Dosing Est GFR ( Amer) Est GFR (Non-Af Amer) BUN/Creatinine Ratio Glucose POC Glucose 127 H POC Lactic Acid Carlos 1.23 Calcium Magnesium Total Bilirubin AST ALT Alkaline Phosphatase Troponin I Total Protein Albumin Globulin Albumin/Globulin Ratio TSH Influenza Type A (PCR) Neg for Influ A Influenza Type B (PCR) Neg for Influ B Diagnostic Findings CHEST XRAY IMPRESSION: 1. Cardiomegaly with interval development of mild pulmonary edema. 2. Progressive bibasilar opacities suggest atelectasis. 3. Trace left pleural effusion. CT HEAD IMPRESSION: No acute intracranial abnormality. Code Status & VTE Plan Code Status FULL CODE VTE Prophylaxis Plan VTE Prophylaxis will be ordered: Yes _ (1) Shingles Herpes zoster complications: without complications Herpes zoster neurologic complication detail: Herpes zoster ocular complication detail: Qualified Code(s): B02.9 - Zoster without complications (2) Pneumonia Aspiration pneumonia type: Laterality: left Lung location: lower lobe of lung Pneumonia type: due to unspecified organism Qualified Code(s): J18.1 - Lobar pneumonia, unspecified organism (3) Altered mental status Altered mental status type: delirium Coma depth: Coma timing: Qualified Code(s): R41.0 - Disorientation, unspecified
[2018-07-11] MEDS ORDERED: ONDANSETRON INJ 2 MG/ML 2 ML VIAL IV PRN (18:44)
[2018-07-11] MEDS ORDERED: ARTIFICIAL TEARS OP PRN (18:44)
[2018-07-11] MEDS ORDERED: POLYETHYLENE (MIRALAX) 17 GM PACK PO PRN (18:44)
[2018-07-11] MEDS ORDERED: ALBUT/IPRATROP 3MG/0.5MG NEB 3 ML VIAL NEB PRN (18:44)
[2018-07-11] MEDS ORDERED: LEVOFLOXACIN CONSULT ACTIVE PRN (20:35)
[2018-07-11] MEDS: SODIUM CHLORIDE 0.9% 1000ML 1,000 ML IV SCH (20:41)
[2018-07-11] MEDS: AMITRIPTYLINE HCL 50 MG TAB PO SCH (20:42)
[2018-07-11] MEDS: GABAPENTIN 300 MG CAP PO SCH (20:42)
[2018-07-11] MEDS: BUDESONIDE/FORMOTEROL FUMARATE 80/4.5 60 PUFFS/INHALER INH SCH (20:43)
[2018-07-11 20:52] LABS: Prothrombin Time 10.4 Seconds (9.0-12.0)
[2018-07-11] MEDS ORDERED: LEVOFLOXACIN/D5W 750 MG/150 ML BAG IV SCH (21:00)
[2018-07-11] MEDS: VALACYCLOVIR HCL 500 MG TABLET PO SCH (21:09)
[2018-07-11] MEDS: ENOXAPARIN INJ 40 MG/0.4 ML SYR SQ SCH (21:46)
[2018-07-12 05:43] LABS: Appearance Urine Clear (Clear); Bacteria Urine Automated Negative (Negative); Bilirubin Urine Negative (Negative); Blood Urine Trace (Negative); Color Urine Dark Yellow; Glucose Urine UA Negative (Negative); Ketones Urine Trace (Negative); Leukocyte Esterase Urine Negative (Negative); Nitrite Urine Negative (Negative); Protein Urine Negative (Negative); Specific Gravity Urine 1.036 (1.000-1.030); Urobilinogen Urine Negative (Negative)
[2018-07-12] MEDS: VALACYCLOVIR HCL 500 MG TABLET PO SCH ×3 (06:13→21:32)
[2018-07-12] MEDS: SODIUM CHLORIDE 0.9% 1000ML 1,000 ML IV SCH ×2 (06:16→16:41)
[2018-07-12 07:02] LABS: Basophils # (auto) 0.03 K/uL (0-0.2); Basophils % (auto) 0.3 %; Eosinophils # (auto) 0.39 K/uL (0-0.5); Eosinophils % (auto) 3.7 %; Hematocrit (blood only) 39.7 % (42-52); Hemoglobin 13.3 g/dL (14.0-18.0); Immature Granulocytes # (auto) 0.02 K/uL (0.00-0.02); Immature Granulocytes % (auto) 0.2 %; Lymphocytes # (auto) 0.59 K/uL (1.2-3.4); Lymphocytes % (auto) 5.7 %; Mean Corpuscular Hgb Conc 33.5 g/dL (32-36); Mean Corpuscular Volume 95.9 fL (80-100); Monocytes # (auto) 0.61 K/uL (0.11-0.59); Monocytes % (auto) 5.8 %; Neutrophils # (auto) 8.79 K/uL (1.4-6.5); Neutrophils % (auto) 84.3 %; Platelet Count 130 K/uL (130-400); RDW Coefficient of Variation 13.9 % (11.5-14.5); RDW Standard Deviation 49.3 fL (36.4-46.3); Red Blood Count 4.14 M/uL (4.7-6.1); White Blood Count 10.43 K/uL (4.8-10.8)
[2018-07-12 07:31] LABS: BUN Creatinine Ratio 13.8 (10-20); Calcium 8.2 mg/dl (8.5-10.1); Est GFR (Non-African American) 49.2; Potassium 4.1 mmol/L (3.5-5.1)
[2018-07-12] MEDS: OXYBUTYNIN CHLORIDE 5 MG TAB PO SCH (09:00)
[2018-07-12] MEDS: LACTULOSE SYRUP 10 GM/15 ML BTL 473 ML PO SCH (09:00)
[2018-07-12] MEDS: FLUTICASONE PROPIONATE NA SPR 16 GM BTL SCH (09:01)
[2018-07-12] MEDS: PANTOprazole 40 MG TAB PO SCH (09:01)
[2018-07-12] MEDS: GABAPENTIN 300 MG CAP PO SCH ×3 (09:01→19:49)
[2018-07-12] MEDS: TAMSULOSIN HCL 0.4 MG CAP PO SCH (09:01)
[2018-07-12] MEDS: BUDESONIDE/FORMOTEROL FUMARATE 80/4.5 60 PUFFS/INHALER INH SCH ×2 (09:32→19:46)
--- NOTE | 2018-07-12 10:19 | Family Medicine Progress Note ---
Addendum entered and electronically signed by Vasquez Paige MD 07/12/18 17:06: Addendum (Blank) Addendum July 12, 2018 17:03 Addendum to shingles pain control: Consider lidoderm cut into strips once vesicles begin to crust/heal. Original Note: Date of Service July 12, 2018 I personally examined the patient and verified all bowens points of history and exam, discussed case, and agree with decision making with Dr Paige Breathing feels okay. Shingles hurts. Vitals noted, in general he is awake alert oriented pleasant no distress. HEENT normocephalic atraumatic mucous membranes moist. Breathing is unlabored clear but somewhat difficult exam no focal findings. Vesicles characteristic of shingles in a dermatomal distribution on the right upper abdomen and right back Community-acquired pneumonia�failed Zithromax, worsened, more than likely were looking at either gram-negative such as Haemophilus influenza versus a more resistant strep pneumo. Given recent recommendations in regards to Levaquin, this will be discontinued in favor of ceftriaxone, ceftriaxone should cover either of are potential culprits. Shingles�continue Valtrex, pain control, supportive care. Hopefully can initiate lidocaine patches soon. Otherwise as above Assessment & Plan (1) Pneumonia: Mr. Vo is an 88yo M with a PMHx of mild cognitive impairment, COPD, tobacco abuse, and BPH who was recently discharged from the ED on 07/11 for LLL pneumonia who presents with fever, chills, AMS, and mild increase in shortness of breath after returning home. He has a vesicular rash in a dermatomal distrubution consistent with shingles. Pneumonia w/ hypoxia - CXR shows LLL pleural effusion, mild pulmonary edema (new), atelectasis - Received ceftriaxone on 07/11 in ED and completed one dose of azithromycin prior to representation - Levofloxacin 750mg Q48H (renal dose adjustment) started on admit. Given tobacco abuse will convert to ceftriaxone and plan for cefdinir/cefpodoxime conversion when ready for PO. - CBC daily. WBC 7 --> 13 --> 10 - O2NC PRN to maintain SpO2 >92-94%. On room air this morning. Shingles - Acute, vesicular eruption with dermatomal distribution of pain 1 day ago - Continue valacyclovir 1g Q8H (Day 06/25) - Follow for further rash eruption, contact precautions - APAP 650mg Q4H PRN - Continues to have breakthrough pain despite APAP. He is also already on gabapentin 900mg TID at baseline. If he continues to have pain would add adjuct a low dose oxycodone IR/morphine, but have reservations given his history of cognitive impairment and risk for delerium. Discussed with pt that his pain is consistent with shingles, and even with aggressive pain control he is unlikely to be completely pain free during an acute episode. His pain is reproducible on palpation and dermatomally limited. COPD - [employer] Budesonide-Formoterol - Duoneb Q4H PRN HTN - By history, although BP well controlled [employer], hypotensive on admit - No antihypertensives [employer] Volume Depletion - IVFM: NSS 100cc/hr BPH - Tamulosin .4mg PO daily - oxybutinin 5mg daily vs finasteride? Chronic Back Pain - No back pain at time of admission other than shingles pain as noted - [employer] Amitriptyline DVT Prophylaxsis: Enoxaparin 40mg SQ (2) Hypoxia: (3) Shingles: (4) Fever: (5) Altered mental status: Subjective Mr. Vo reports that he feels 'like he is here' today. Reports that yesterday he had increased shortness of breath, fever, chills at home following discharge from the hospital and had some pain in his abdomen and a rash. He does not feel shortness of breath at rest in bed today. No fever or chills overnight. No night sweats overnight. Endorses some fatigue. Denies abdominal pain, diarrhea, constipation. Endorses decreased appetite without nausea or vomiting. Endorses some itchy/painful discomfort in his right lower abdomen wrapping around to his back where his rashes, but that it is'not too bad.' Voices no questions or concerns Addendum: 2:10pm Saw pt at bedside, reporting R sided chest pain to nursing staff. Pain is his R upper abdomen 'in the skin', burning in quality, and wraps to his back in a dermatomal distribution and overlaps his vesicular rash. 2/10 at rest, 10/10 when coughing. Mildly improved with APAP 650mg, worsened by palpation/touch. No chest pain, no increased shortness of breath, diaphoresis, worsening breathing, shoulder pain. Review of Systems All systems reviewed & are unremarkable except as noted in HPI & below Physical Exam 2 Vital Signs (Past 24 Hours): Last Vital Signs Temp 37.1 C 07/12/18 07:05 Pulse 77 07/12/18 07:05 Resp 18 07/12/18 07:05 BP 99/46 L 07/12/18 07:05 Pulse Ox 92 07/12/18 07:05 Physical Exam: General: A&O to name. NAD. Cooperative. HEENT: Atraumatic, normocephalic. Pulm: RLL, LLL with soft rales. no rhonchi. Mild diffuse wheeze appreciated on forced expiration. Symmetrical chest rise. Moderate air movement. No respiratory distress. Cardiac: RRR, -mrg. Radial pulses intact and symmetrical. Abdominal: Nondistended, soft. BS present. Vesicular rash on right abdomen at ~ T9 with some burning and sensitivity to touch wrapping in a dermatomal distribution to the back. Results & Data Laboratory Results Abnormal lab results 07/11/18 07/11/18 07/11/18 Range/Units 14:15 14:15 14:27 WBC 13.14 H (4.8-10.8) K/uL RBC (4.7-6.1) M/uL Hgb (14.0-18.0) g/dL Hct (42-52) % RDW Std Deviation (36.4-46.3) fL MPV 10.7 H (7.4-10.4) fL Immature Gran # (Auto) 0.03 H (0.00-0.02) K/uL Neut # (Auto) 12.21 H (1.4-6.5) K/uL Lymph # (Auto) 0.23 L (1.2-3.4) K/uL [place] # (Auto) 0.63 H (0.11-0.59) K/uL Chloride (98-107) mmol/L BUN/Creatinine Ratio 8.0 L (10-20) Glucose 125 H (70-99) mg/dl POC Glucose 127 H (70-99) Calcium (8.5-10.1) mg/dl Ur Specific [place] (1.000-1.030) Urine Ketones (Negative) Urine Blood (Negative) Urine RBC (Auto) (0-4) /hpf U Epithel Cells (Auto) (0-5) /lpf 07/12/18 07/12/18 07/12/18 Range/Units 04:30 06:39 06:39 WBC (4.8-10.8) K/uL RBC 4.14 L (4.7-6.1) M/uL Hgb 13.3 L (14.0-18.0) g/dL Hct 39.7 L (42-52) % RDW Std Deviation 49.3 H (36.4-46.3) fL MPV (7.4-10.4) fL Immature Gran # (Auto) (0.00-0.02) K/uL Neut # (Auto) 8.79 H (1.4-6.5) K/uL Lymph # (Auto) 0.59 L (1.2-3.4) K/uL [place] # (Auto) 0.61 H (0.11-0.59) K/uL Chloride 110 H (98-107) mmol/L BUN/Creatinine Ratio (10-20) Glucose 110 H (70-99) mg/dl POC Glucose (70-99) Calcium 8.2 L (8.5-10.1) mg/dl Ur Specific [place] 1.036 H (1.000-1.030) Urine Ketones Trace H (Negative) Urine Blood Trace H (Negative) Urine RBC (Auto) 10-30 H (0-4) /hpf U Epithel Cells (Auto) 5-10 H (0-5) /lpf Medications Administered Current Inpatient Medications Acetaminophen (Tylenol) 650 mg PO Q4H PRN PRN Reason: Pain or Fever Stop: 08/10/18 18:43 Albuterol (Duoneb) 3 ml NEB Q4R PRN PRN Reason: Shortness Of Breath Or Wheezing Stop: 08/10/18 18:43 Amitriptyline HCl (Elavil) 50 mg PO HS ADITYA Stop: 08/10/18 20:59 Last Admin: 07/11/18 20:42 Dose: 50 mg Artificial Tears (Artificial Tears) 2 drops OP UD PRN PRN Reason: Dry Eye(S) Stop: 08/10/18 18:43 Budesonide/Formoterol Fumarate (Symbicort 80mcg/4.5mcg) 2 puffs INH BID ADITYA Stop: 08/10/18 20:59 Last Admin: 07/12/18 09:32 Dose: 2 puffs Enoxaparin Sodium (Lovenox) 40 mg SQ QPM ADITYA Stop: 08/10/18 20:59 Last Admin: 07/11/18 21:46 Dose: 40 mg Fluticasone Propionate (Flonase) 2 sprays NA DAILY ADITYA Stop: 08/11/18 08:59 Last Admin: 07/12/18 09:01 Dose: 2 sprays Gabapentin (Neurontin) 900 mg PO TID ADITYA Stop: 08/10/18 20:59 Last Admin: 07/12/18 09:01 Dose: 900 mg Sodium Chloride (Nss 1000ml) 1,000 mls @ 100 mls/hr IV .Q10H [facility] Stop: 08/10/18 19:59 Last Admin: 07/12/18 06:16 Dose: 100 mls/hr Levofloxacin/Dextrose (Levaquin/D5w) 750 mg in 150 mls @ 100 mls/hr IV Q48H [facility] ; Protocol Stop: 07/18/18 20:59 Last Infusion: 07/11/18 22:47 Dose: Infused Lactulose (Chronulac) 10 gm PO DAILY [facility] Stop: 08/11/18 08:59 Last Admin: 07/12/18 09:00 Dose: 10 gm Miscellaneous Information (Consult) 1 ea N/A UD PRN PRN Reason: Consult Stop: 08/10/18 20:34 Ondansetron HCl (Zofran) 4 mg IV Q6H PRN PRN Reason: Nausea Stop: 08/10/18 18:43 Oxybutynin Chloride (Ditropan) 5 mg PO DAILY [facility] Stop: 08/11/18 08:59 Last Admin: 07/12/18 09:00 Dose: 5 mg Pantoprazole Sodium (Protonix) 40 mg PO DAILY [facility] Stop: 08/11/18 08:59 Last Admin: 07/12/18 09:01 Dose: 40 mg Polyethylene Glycol (Miralax Powder Packet) 17 gm PO DAILY PRN PRN Reason: Constipation Stop: 08/10/18 18:43 Tamsulosin HCl (Flomax) 0.4 mg PO DAILY [facility] Stop: 08/11/18 08:59 Last Admin: 07/12/18 09:01 Dose: 0.4 mg Valacyclovir HCl (Valtrex) 1,000 mg PO Q8 ADITYA Stop: 07/21/18 21:59 Last Admin: 07/12/18 09:00 Dose: 1,000 mg Resident Activity Tracking Resident Involvement: Resident Care Provided Care Provided: [facility] [place] [facility] _ (1) Fever Encounter type: Fever type: unspecified Qualified Code(s): R50.9 - Fever, unspecified (2) Shingles Herpes zoster complications: without complications Herpes zoster neurologic complication detail: Herpes zoster ocular complication detail: Qualified Code(s): B02.9 - Zoster without complications (3) Altered mental status Altered mental status type: delirium Coma depth: Coma timing: Qualified Code(s): R41.0 - Disorientation, unspecified (4) Pneumonia Aspiration pneumonia type: Laterality: left Lung location: lower lobe of lung Pneumonia type: due to unspecified organism Qualified Code(s): J18.1 - Lobar pneumonia, unspecified organism
[2018-07-12] MEDS: ACETAMINOPHEN 325 MG TAB PO PRN ×2 (12:14→16:43)
[2018-07-12] MEDS ORDERED: COUGH DROP (SUGAR FREE) LOZ 24 LOZ/1 BOX BUCCAL ONE (13:04)
[2018-07-12] MEDS: cefTRIAXone SODIUM 1,000 MG in SODIUM CHLOR 0.9% AD-VAN 50 ML IV SCH (17:14)
[2018-07-12] MEDS: AMITRIPTYLINE HCL 50 MG TAB PO SCH (19:47)
[2018-07-12] MEDS: ENOXAPARIN INJ 40 MG/0.4 ML SYR SQ SCH (19:47)
[2018-07-13] MEDS ORDERED: OXYCODONE HCL IR 5 MG TAB (IMMEDIATE RELEASE) PO STA (00:59)
[2018-07-13] MEDS: SODIUM CHLORIDE 0.9% 1000ML 1,000 ML IV SCH ×2 (01:19→14:19)
[2018-07-13] MEDS: VALACYCLOVIR HCL 500 MG TABLET PO SCH ×3 (05:49→21:24)
[2018-07-13 06:10] LABS: Basophils # (auto) 0.02 K/uL (0-0.2); Basophils % (auto) 0.3 %; Eosinophils # (auto) 0.54 K/uL (0-0.5); Hematocrit (blood only) 38.1 % (42-52); Hemoglobin 12.6 g/dL (14.0-18.0); Immature Granulocytes # (auto) 0.01 K/uL (0.00-0.02); Immature Granulocytes % (auto) 0.2 %; Lymphocytes # (auto) 0.83 K/uL (1.2-3.4); Lymphocytes % (auto) 13.8 %; Mean Corpuscular Hgb Conc 33.1 g/dL (32-36); Mean Platelet Volume 9.7 fL (7.4-10.4); Monocytes # (auto) 0.42 K/uL (0.11-0.59); Neutrophils % (auto) 69.7 %; Platelet Count 119 K/uL (130-400); RDW Coefficient of Variation 13.4 % (11.5-14.5); RDW Standard Deviation 47.4 fL (36.4-46.3); Red Blood Count 3.97 M/uL (4.7-6.1); White Blood Count 6.02 K/uL (4.8-10.8)
[2018-07-13 06:56] LABS: BUN Creatinine Ratio 12.9 (10-20); Calcium 8.1 mg/dl (8.5-10.1); Creatinine Clr Calc Pharmacy 54.5 ml/min; Est GFR (African American) 69.9; Est GFR (Non-African American) 60.3; Potassium 3.8 mmol/L (3.5-5.1)
[2018-07-13] MEDS: GABAPENTIN 300 MG CAP PO SCH ×3 (08:24→21:22)
[2018-07-13] MEDS: OXYBUTYNIN CHLORIDE 5 MG TAB PO SCH (08:24)
[2018-07-13] MEDS: PANTOprazole 40 MG TAB PO SCH (08:24)
[2018-07-13] MEDS: TAMSULOSIN HCL 0.4 MG CAP PO SCH (08:24)
[2018-07-13] MEDS: LACTULOSE SYRUP 10 GM/15 ML BTL 473 ML PO SCH (08:24)
[2018-07-13] MEDS: FLUTICASONE PROPIONATE NA SPR 16 GM BTL SCH ×2 (08:24→21:30)
[2018-07-13] MEDS: BUDESONIDE/FORMOTEROL FUMARATE 80/4.5 60 PUFFS/INHALER INH SCH ×2 (08:25→21:23)
[2018-07-13] MEDS: ACETAMINOPHEN 325 MG TAB PO PRN ×2 (08:51→18:55)
[2018-07-13] MEDS: OXYCODONE HCL IR 5 MG TAB (IMMEDIATE RELEASE) PO PRN ×2 (10:15→18:55)
--- NOTE | 2018-07-13 10:24 | Family Medicine Progress Note ---
Date of Service July 13, 2018 Assessment & Plan (1) Pneumonia: Mr. Vo is an 88yo M with a PMHx of mild cognitive impairment, COPD, tobacco abuse, and BPH who was recently discharged from the ED on 07/11 for LLL pneumonia who presents with fever, chills, AMS, and mild increase in shortness of breath after returning home. He has a vesicular rash in a dermatomal distribution consistent with shingles. Pneumonia w/ hypoxia - Appears clinically stable this morning and will transfer to med/surg today. cafeteria monitor was pulse sinus in 80s. Will discontinue residential monitor on transfer. - CXR shows LLL pleural effusion, mild pulmonary edema (new), atelectasis - Received ceftriaxone on 07/11 in ED and completed one dose of azithromycin prior to representation. Will continue on Rocephin IV here and expect to DC on Cefdinir. - Levofloxacin 750mg Q48H (renal dose adjustment) started on admit. Given tobacco abuse was converted to ceftriaxone and plan for cefdinir/cefpodoxime conversion when ready for PO. - CBC daily. WBC 7 --> 13 --> 10 --> 6.02 (today). - O2NC PRN to maintain SpO2 >92-94%. On room air this morning. Shingles - Acute, vesicular eruption with dermatomal distribution of pain 3 days ago - Continue valacyclovir 1g Q8H (Day 3/7) - Follow for further rash eruption, contact precautions - APAP 650mg Q4H PRN - Continues to have breakthrough pain despite APAP. He is also already on gabapentin 900mg TID at baseline. Added Oxycodone 5mg PRN which worked last night and patient tolerated well, but did have reservations given his history of cognitive impairment and risk for delirium. Discussed with pt that his pain is consistent with shingles, and even with aggressive pain control he is unlikely to be completely pain free during an acute episode. His pain is reproducible on palpation and dermatomally limited. COPD - RAW HIDE TRIMMER Budesonide-Formoterol - Duoneb Q4H PRN HTN - By history, although BP well controlled RAW HIDE TRIMMER, hypotensive on admit - No antihypertensives RAW HIDE TRIMMER Volume Depletion - IVFM: NSS 100cc/hr BPH - Tamulosin .4mg PO daily - oxybutinin 5mg daily vs finasteride? Chronic Back Pain - No back pain at time of admission other than shingles pain as noted - RAW HIDE TRIMMER Amitriptyline DVT Prophylaxsis: Enoxaparin 40mg SQ (2) Hypoxia: (3) Shingles: (4) Fever: (5) Altered mental status: Supervising Physician Co-Signing Physician Notes I saw the patient with Dr. Duke and confirmed bowens portions of the history and physical exam. Upon exam, the patient notes continued nonproductive cough. He also notes right -sided back and flank pain secondary to his active zoster. It sounds as if both the cough and flank pain are slightly better compared to yesterday. Lung sounds are somewhat difficult to auscultate since the patient does have discomfort when the stethoscope is pressed to auscultate the right posterior middle and lower lung biswas. Impression Community-acquired pneumonia Shingles Plan Continue Rocephin Continue antivirals Continue current medications as ordered Subjective Mr. Vo states that his breathing is stable today. No chest pains. He reports a dry cough. He also complains of pain related to shingles outbreak across right abdomen and right back. He received Oxycodone 5mg overnight that helped to resolve acute pain of herpes zoster. Physical Exam 2 Vital Signs (Past 24 Hours): Last Vital Signs Temp 36.8 C 07/13/18 07:23 Pulse 83 07/13/18 07:23 Resp 20 07/13/18 07:23 BP 135/82 07/13/18 07:23 Pulse Ox 92 07/13/18 07:23 Constitutional: WD/WN, vitals as above cooperative and comfortable Eyes: EOM intact bilaterally Neck: trachea midline; no tracheal deviation Respiratory: no respiratory distress and does not use accessory muscles Auscultation: + crackles (expiratory at posterior bases) cough during exam Cardiovascular: Rate/Rhythm: regular rate and regular rhythm Gastrointestinal (Abdomen): Inspection/Auscultation: normal bowel sounds Percussion/Palpation: abdomen soft; abdomen nontender Skin: Several crusted healing vesicles to the right abdomen and right back in the area of dermatome T8 Neurologic: awake Psychiatric: Orientation: alert Eye Contact: good eye contact Affect: euthymic affect Results & Data Laboratory Results Laboratory Results - last 24 hr 07/13/18 07/13/18 06:00 06:00 WBC 6.02 RBC 3.97 L Hgb 12.6 L Hct 38.1 L MCV 96.0 MCH 31.7 MCHC 33.1 RDW Std Deviation 47.4 H RDW Coeff of Marco Antonio 13.4 Plt Count 119 L MPV 9.7 Immature Gran % (Auto) 0.2 Neut % (Auto) 69.7 Lymph % (Auto) 13.8 [place] % (Auto) 7.0 Eos % (Auto) 9.0 Baso % (Auto) 0.3 Immature Gran # (Auto) 0.01 Neut # (Auto) 4.20 Lymph # (Auto) 0.83 L [place] # (Auto) 0.42 Eos # (Auto) 0.54 H Baso # (Auto) 0.02 Sodium 141 Potassium 3.8 Chloride 111 H Carbon Dioxide 25 Anion Gap 5.0 BUN 14 Creatinine 1.09 Est Cr Clr Drug Dosing 54.5 Est GFR ( Amer) 69.9 Est GFR (Non-Af Amer) 60.3 BUN/Creatinine Ratio 12.9 Glucose 97 Calcium 8.1 L Specimen Hemolysis Medications Administered Acetaminophen (Tylenol) 650 mg PO Q4H PRN PRN Reason: Pain or Fever Stop: 08/10/18 18:43 Last Admin: 07/13/18 08:51 Dose: 650 mg Admin: 07/12/18 16:43 Dose: 650 mg Admin: 07/12/18 12:14 Dose: 650 mg Amitriptyline HCl (Elavil) 50 mg PO HS [facility] Stop: 08/10/18 20:59 Last Admin: 07/12/18 19:47 Dose: 50 mg Admin: 07/11/18 20:42 Dose: 50 mg Budesonide/Formoterol Fumarate (Symbicort 80mcg/4.5mcg) 2 puffs INH BID [facility] Stop: 08/10/18 20:59 Last Admin: 07/13/18 08:25 Dose: 2 puffs Admin: 07/12/18 19:46 Dose: 2 puffs Admin: 07/12/18 09:32 Dose: 2 puffs Admin: 07/11/18 20:43 Dose: 2 puffs Enoxaparin Sodium (Lovenox) 40 mg SQ QPM [facility] Stop: 08/10/18 20:59 Last Admin: 07/12/18 19:47 Dose: 40 mg Admin: 07/11/18 21:46 Dose: 40 mg Fluticasone Propionate (Flonase) 2 sprays NA DAILY [facility] Stop: 08/11/18 08:59 Last Admin: 07/13/18 08:24 Dose: 2 sprays Admin: 07/12/18 09:01 Dose: 2 sprays Gabapentin (Neurontin) 900 mg PO TID [facility] Stop: 08/10/18 20:59 Last Admin: 07/13/18 08:24 Dose: 900 mg Admin: 07/12/18 19:49 Dose: 900 mg Admin: 07/12/18 13:52 Dose: 900 mg Admin: 07/12/18 09:01 Dose: 900 mg Admin: 07/11/18 20:42 Dose: 900 mg Sodium Chloride (Nss 1000ml) 1,000 mls @ 100 mls/hr IV .Q10H [facility] Stop: 08/10/18 19:59 Last Admin: 07/13/18 01:19 Dose: 100 mls/hr Infusion: 07/13/18 01:19 Dose: 100 mls/hr Admin: 07/12/18 16:41 Dose: 100 mls/hr Infusion: 07/12/18 16:16 Dose: 100 mls/hr Admin: 07/12/18 06:16 Dose: 100 mls/hr Infusion: 07/12/18 06:16 Dose: 100 mls/hr Infusion: 07/11/18 22:47 Dose: 100 mls/hr Infusion: 07/11/18 21:07 Dose: 0 mls/hr Admin: 07/11/18 20:41 Dose: 100 mls/hr Ceftriaxone Sodium 1,000 mg/ (Sodium Chloride) 50 mls @ 100 mls/hr IV DAILY@ 1800 [facility]; Protocol Stop: 07/19/18 17:59 Last Infusion: 07/12/18 18:07 Dose: Admin: 07/12/18 17:14 Dose: 100 mls/hr Lactulose (Chronulac) 10 gm PO DAILY [facility] Stop: 08/11/18 08:59 Last Admin: 07/13/18 08:24 Dose: 10 gm Admin: 07/12/18 09:00 Dose: 10 gm Oxybutynin Chloride (Ditropan) 5 mg PO DAILY [facility] Stop: 08/11/18 08:59 Last Admin: 07/13/18 08:24 Dose: 5 mg Admin: 07/12/18 09:00 Dose: 5 mg Oxycodone HCl (Roxicodone Immediate Rel) 5 mg PO Q6H PRN PRN Reason: Pain Stop: 07/27/18 09:17 Last Admin: 07/13/18 10:15 Dose: 5 mg Pantoprazole Sodium (Protonix) 40 mg PO DAILY [facility] Stop: 08/11/18 08:59 Last Admin: 07/13/18 08:24 Dose: 40 mg Admin: 07/12/18 09:01 Dose: 40 mg Tamsulosin HCl (Flomax) 0.4 mg PO DAILY [facility] Stop: 08/11/18 08:59 Last Admin: 07/13/18 08:24 Dose: 0.4 mg Admin: 07/12/18 09:01 Dose: 0.4 mg Valacyclovir HCl (Valtrex) 1,000 mg PO Q8 [facility] Stop: 07/21/18 21:59 Last Admin: 07/13/18 05:49 Dose: 1,000 mg Admin: 07/12/18 21:32 Dose: 1,000 mg Admin: 07/12/18 09:00 Dose: 1,000 mg Admin: 07/12/18 06:13 Dose: 1,000 mg Admin: 07/11/18 21:09 Dose: 1,000 mg _ (1) Fever Encounter type: Fever type: unspecified Qualified Code(s): R50.9 - Fever, unspecified (2) Shingles Herpes zoster complications: without complications Herpes zoster neurologic complication detail: Herpes zoster ocular complication detail: Qualified Code(s): B02.9 - Zoster without complications (3) Altered mental status Altered mental status type: delirium Coma depth: Coma timing: Qualified Code(s): R41.0 - Disorientation, unspecified (4) Pneumonia Aspiration pneumonia type: Laterality: left Lung location: lower lobe of lung Pneumonia type: due to unspecified organism Qualified Code(s): J18.1 - Lobar pneumonia, unspecified organism
[2018-07-13] MEDS: cefTRIAXone SODIUM 1,000 MG in SODIUM CHLOR 0.9% AD-VAN 50 ML IV SCH (18:48)
[2018-07-13] MEDS: AMITRIPTYLINE HCL 50 MG TAB PO SCH (21:23)
[2018-07-13] MEDS: ENOXAPARIN INJ 40 MG/0.4 ML SYR SQ SCH (21:23)
[2018-07-14] MEDS: VALACYCLOVIR HCL 500 MG TABLET PO SCH ×3 (06:07→20:51)
[2018-07-14] MEDS: FLUTICASONE PROPIONATE NA SPR 16 GM BTL SCH (07:18)
[2018-07-14] MEDS: GABAPENTIN 300 MG CAP PO SCH ×3 (07:19→20:50)
[2018-07-14] MEDS: LACTULOSE SYRUP 10 GM/15 ML BTL 473 ML PO SCH (07:19)
[2018-07-14] MEDS: BUDESONIDE/FORMOTEROL FUMARATE 80/4.5 60 PUFFS/INHALER INH SCH ×2 (07:19→20:50)
[2018-07-14] MEDS: TAMSULOSIN HCL 0.4 MG CAP PO SCH (07:20)
[2018-07-14] MEDS: PANTOprazole 40 MG TAB PO SCH (07:20)
[2018-07-14] MEDS: OXYBUTYNIN CHLORIDE 5 MG TAB PO SCH (07:20)
[2018-07-14 07:52] LABS: Basophils # (auto) 0.07 K/uL (0-0.2); Basophils % (auto) 1.3 %; Eosinophils # (auto) 0.62 K/uL (0-0.5); Eosinophils % (auto) 11.3 %; Hematocrit (blood only) 40.1 % (42-52); Hemoglobin 13.7 g/dL (14.0-18.0); Immature Granulocytes # (auto) 0.01 K/uL (0.00-0.02); Immature Granulocytes % (auto) 0.2 %; Lymphocytes # (auto) 1.35 K/uL (1.2-3.4); Lymphocytes % (auto) 24.7 %; Mean Corpuscular Hgb Conc 34.2 g/dL (32-36); Mean Corpuscular Volume 94.8 fL (80-100); Mean Platelet Volume 9.6 fL (7.4-10.4); Monocytes # (auto) 0.43 K/uL (0.11-0.59); Monocytes % (auto) 7.9 %; Neutrophils # (auto) 2.99 K/uL (1.4-6.5); Neutrophils % (auto) 54.6 %; Platelet Count 134 K/uL (130-400); RDW Coefficient of Variation 13.2 % (11.5-14.5); RDW Standard Deviation 45.9 fL (36.4-46.3); Red Blood Count 4.23 M/uL (4.7-6.1); White Blood Count 5.47 K/uL (4.8-10.8)
[2018-07-14 08:25] LABS: Calcium 8.6 mg/dl (8.5-10.1); Creatinine Clr Calc Pharmacy 58.2 ml/min; Est GFR (African American) 75.7; Est GFR (Non-African American) 65.3; Potassium 3.6 mmol/L (3.5-5.1)
--- NOTE | 2018-07-14 09:08 | XRay Report ---
XR chest 2V routine CLINICAL HISTORY: Rales on exam, possible fluid overload COMPARISON STUDY: 07/11/2018 FINDINGS: Mild stable cardia megaly. Baseline emphysematous change. Mild chronic interstitial promine nce. No focal infiltrative change. Moderate degenerative change thoracic spine. IMPRESSION: Chronic and emphysematous change. No acute process. The above report was generated using voice recognition software. It may contain grammatical, syntax or spelling errors. Electronically signed by: Mango Cotter M.D. 07/14/2018 9:07 AM
[2018-07-14] MEDS: DOXYCYCLINE HYCLATE 100 MG CAP PO SCH ×2 (12:21→20:50)
--- NOTE | 2018-07-14 14:54 | Family Medicine Progress Note ---
Date of Service July 14, 2018 Assessment & Plan (1) Pneumonia: Mr. Vo is an 88yo M with a PMHx of mild cognitive impairment, COPD, tobacco abuse, and BPH who was recently discharged from the ED on 07/11 for LLL pneumonia who presents with fever, chills, AMS, and mild increase in shortness of breath after returning home. He has a vesicular rash in a dermatomal distribution consistent with shingles. Pneumonia w/ hypoxia - Appears clinically stable this morning with less cough, improved CXR showing only chronic emphysematous change and no acute process. Will D/C Rocephin and start on Doxycycline 100mg BID. Discussed that nearing disposition for discharge home and that pain of right flank/lower back is probably musculoskeletal and shingles related. Discussed short course of pain medication on discharge. Patient has been tolerating pain meds without altered mental status here in hospital. - Previous on admit CXR shows LLL pleural effusion, mild pulmonary edema (new), atelectasis. Today, improved CXR showing only chronic emphysematous change and no acute process. - Received ceftriaxone on 07/11 in ED and completed one dose of azithromycin prior to representation. Will discontinue Rocephin IV and start on Doxycycline - Levofloxacin 750mg Q48H (renal dose adjustment) started on admit. Given tobacco abuse was converted to ceftriaxone and plan for cefdinir/cefpodoxime conversion when ready for PO. - CBC daily. WBC 7 --> 13 --> 10 --> 6.02 --> 5.47 (today). - O2NC PRN to maintain SpO2 >92-94%. On room air this morning. Shingles - Acute, vesicular eruption with dermatomal distribution of pain 4 days ago - Continue valacyclovir 1g Q8H (Day 4/7) - Follow for further rash eruption, contact precautions - APAP 650mg Q4H PRN - For breakthrough pain despite APAP and usual gabapentin 900mg TID, continue with Oxycodone 5mg PRN Erythema of back and chest - generalized erythema on back and chest noted today that blanches with pressure. Patient was reclined in bed prior to inspection. Could possible drug reaction from antibiotics, heat urticaria, dermatographism, does not appear consistent with cellulitic infection. Antibiotic was switched from Rocephin IV to Doxycycline 100mg BID. Doxycycline will cover antibiotic treatment from pneumonia for discharge home and also added benefit for soft tissue/skin coverage if etiology of skin erythema is infectious. Will re- evaluate tomorrow. COPD - SUBSTATION TECHNICIAN Budesonide-Formoterol - Duoneb Q4H PRN HTN - By history, although BP well controlled SUBSTATION TECHNICIAN, hypotensive on admit - No antihypertensives SUBSTATION TECHNICIAN Volume Depletion - IVFM: NSS 100cc/hr BPH - Tamulosin .4mg PO daily - oxybutinin 5mg daily vs finasteride? Chronic Back Pain - No back pain at time of admission other than shingles pain as noted - SUBSTATION TECHNICIAN Amitriptyline DVT Prophylaxsis: Enoxaparin 40mg SQ (2) Hypoxia: resolved (3) Shingles: see above (4) Fever: resolved (5) Altered mental status: appears resolved, alert and oriented x3 Supervising Physician Co-Signing Physician Notes I saw the patient with Dr. Duke and confirmed bowens portions of the history and physical exam. Patient is tolerating and on room air. He still notes pain, left side - I think this is a combination of shingles and costal pain from coughing. Upon exam, he has a questionable rash on his back and chest - flat, erythamtous. He denies itching - but does note pain in the area of shingles. The question is if this is a drug related rash. I am not going to list rocephin as an allergy, but could switch to doxycyline since we are transitioning from IV to PO today anyhow. Impression Community-acquired pneumonia Shingles Plan Change to PO doxycyline Continue antivirals Trial of PO pain medication. Ambulate. Consider d/c in AM if pain manageable. Subjective Mr. Vo states that his breathing is stable today. No chest pains. He continues to report a dry cough. He complains of right lower flank pain/right lower back pain. He states this is worsened with cough but not with deep breaths. He states he does not feel well enough to return home because of pain. Daughter arrived this afternoon who noted that patient has paranoid schizophrenic son who lives at his residence. She was concerned over safety of patient returning to home. Daughter relayed concern to Distillation Operator Helper and myself. Distillation Operator Helper discussed that patient is competent to make decisions, but she would call [facility]. She discussed with daughter to call and relay information to [facility] as well. There are no firearms at patient's residence. Physical Exam 2 Vital Signs (Past 24 Hours): Last Vital Signs Temp 36.7 C 07/14/18 07:23 Pulse 77 07/14/18 07:23 Resp 18 07/14/18 07:23 BP 134/77 07/14/18 07:23 Pulse Ox 93 07/14/18 07:23 Constitutional: WD/WN, vitals as above cooperative and comfortable Eyes: EOM intact bilaterally Neck: trachea midline; no tracheal deviation Respiratory: no respiratory distress and does not use accessory muscles Cardiovascular: Rate/Rhythm: regular rate and regular rhythm Gastrointestinal (Abdomen): Inspection/Auscultation: normal bowel sounds Percussion/Palpation: abdomen soft; abdomen nontender Musculoskeletal: right lower back and right lower flank soft tissue tenderness that is reproducible on palpation, there is no CVA tenderness, not reproduced with deep breaths. Skin: generalized erythema on back and chest that blanches with pressure Neurologic: awake Psychiatric: Orientation: alert Eye Contact: good eye contact Affect: euthymic affect Results & Data Laboratory Results Laboratory Results - last 24 hr 07/14/18 07/14/18 07:35 07:35 WBC 5.47 RBC 4.23 L Hgb 13.7 L Hct 40.1 L MCV 94.8 MCH 32.4 MCHC 34.2 RDW Std Deviation 45.9 RDW Coeff of Marco Antonio 13.2 Plt Count 134 MPV 9.6 Immature Gran % (Auto) 0.2 Neut % (Auto) 54.6 Lymph % (Auto) 24.7 [place] % (Auto) 7.9 Eos % (Auto) 11.3 Baso % (Auto) 1.3 Immature Gran # (Auto) 0.01 Neut # (Auto) 2.99 Lymph # (Auto) 1.35 [place] # (Auto) 0.43 Eos # (Auto) 0.62 H Baso # (Auto) 0.07 Sodium 141 Potassium 3.6 Chloride 109 H Carbon Dioxide 27 Anion Gap 5.0 BUN 10 Creatinine 1.02 Est Cr Clr Drug Dosing 58.2 Est GFR ( Amer) 75.7 Est GFR (Non-Af Amer) 65.3 BUN/Creatinine Ratio 10.0 Glucose 94 Calcium 8.6 Diagnostic Findings Repeat CXR this morning IMPRESSION: Chronic and emphysematous change. No acute process. Medications Administered Acetaminophen (Tylenol) 650 mg PO Q4H PRN PRN Reason: Pain or Fever Stop: 08/10/18 18:43 Last Admin: 07/13/18 18:55 Dose: 650 mg Admin: 07/13/18 08:51 Dose: 650 mg Admin: 07/12/18 16:43 Dose: 650 mg Admin: 07/12/18 12:14 Dose: 650 mg Amitriptyline HCl (Elavil) 50 mg PO HS [facility] Stop: 08/10/18 20:59 Last Admin: 07/13/18 21:23 Dose: 50 mg Admin: 07/12/18 19:47 Dose: 50 mg Admin: 07/11/18 20:42 Dose: 50 mg Budesonide/Formoterol Fumarate (Symbicort 80mcg/4.5mcg) 2 puffs INH BID [facility] Stop: 08/10/18 20:59 Last Admin: 07/14/18 07:19 Dose: 2 puffs Admin: 07/13/18 21:23 Dose: 2 puffs Admin: 07/13/18 08:25 Dose: 2 puffs Admin: 07/12/18 19:46 Dose: 2 puffs Admin: 07/12/18 09:32 Dose: 2 puffs Admin: 07/11/18 20:43 Dose: 2 puffs Doxycycline Hyclate (Vibramycin) 100 mg PO BID [facility] Stop: 07/21/18 11:14 Last Admin: 07/14/18 12:21 Dose: 100 mg Enoxaparin Sodium (Lovenox) 40 mg SQ QPM [facility] Stop: 08/10/18 20:59 Last Admin: 07/13/18 21:23 Dose: 40 mg Admin: 07/12/18 19:47 Dose: 40 mg Admin: 07/11/18 21:46 Dose: 40 mg Fluticasone Propionate (Flonase) 2 sprays NA DAILY [facility] Stop: 08/11/18 08:59 Last Admin: 07/14/18 07:18 Dose: 2 sprays Admin: 07/13/18 21:30 Dose: 2 sprays Admin: 07/13/18 08:24 Dose: 2 sprays Admin: 07/12/18 09:01 Dose: 2 sprays Gabapentin (Neurontin) 900 mg PO TID [facility] Stop: 08/10/18 20:59 Last Admin: 07/14/18 13:33 Dose: 900 mg Admin: 07/14/18 07:19 Dose: 900 mg Admin: 07/13/18 21:22 Dose: 900 mg Admin: 07/13/18 14:18 Dose: 900 mg Admin: 07/13/18 08:24 Dose: 900 mg Admin: 07/12/18 19:49 Dose: 900 mg Admin: 07/12/18 13:52 Dose: 900 mg Admin: 07/12/18 09:01 Dose: 900 mg Admin: 07/11/18 20:42 Dose: 900 mg Lactulose (Chronulac) 10 gm PO DAILY [facility] Stop: 08/11/18 08:59 Last Admin: 07/14/18 07:19 Dose: 10 gm Admin: 07/13/18 08:24 Dose: 10 gm Admin: 07/12/18 09:00 Dose: 10 gm Oxybutynin Chloride (Ditropan) 5 mg PO DAILY [facility] Stop: 08/11/18 08:59 Last Admin: 07/14/18 07:20 Dose: 5 mg Admin: 07/13/18 08:24 Dose: 5 mg Admin: 07/12/18 09:00 Dose: 5 mg Oxycodone HCl (Roxicodone Immediate Rel) 5 mg PO Q6H PRN PRN Reason: Pain Stop: 07/27/18 09:17 Last Admin: 07/14/18 15:15 Dose: 5 mg Admin: 07/13/18 18:55 Dose: 5 mg Admin: 07/13/18 10:15 Dose: 5 mg Pantoprazole Sodium (Protonix) 40 mg PO DAILY [facility] Stop: 08/11/18 08:59 Last Admin: 07/14/18 07:20 Dose: 40 mg Admin: 07/13/18 08:24 Dose: 40 mg Admin: 07/12/18 09:01 Dose: 40 mg Tamsulosin HCl (Flomax) 0.4 mg PO DAILY [facility] Stop: 08/11/18 08:59 Last Admin: 07/14/18 07:20 Dose: 0.4 mg Admin: 07/13/18 08:24 Dose: 0.4 mg Admin: 07/12/18 09:01 Dose: 0.4 mg Valacyclovir HCl (Valtrex) 1,000 mg PO Q8 [facility] Stop: 07/21/18 21:59 Last Admin: 07/14/18 13:33 Dose: 1,000 mg Admin: 07/14/18 06:07 Dose: 1,000 mg Admin: 07/13/18 21:24 Dose: 1,000 mg Admin: 07/13/18 14:18 Dose: 1,000 mg Admin: 07/13/18 05:49 Dose: 1,000 mg Admin: 07/12/18 21:32 Dose: 1,000 mg Admin: 07/12/18 09:00 Dose: 1,000 mg Admin: 07/12/18 06:13 Dose: 1,000 mg Admin: 07/11/18 21:09 Dose: 1,000 mg _ (1) Fever Encounter type: Fever type: unspecified Qualified Code(s): R50.9 - Fever, unspecified (2) Shingles Herpes zoster complications: without complications Herpes zoster neurologic complication detail: Herpes zoster ocular complication detail: Qualified Code(s): B02.9 - Zoster without complications (3) Altered mental status Altered mental status type: delirium Coma depth: Coma timing: Qualified Code(s): R41.0 - Disorientation, unspecified (4) Pneumonia Aspiration pneumonia type: Laterality: left Lung location: lower lobe of lung Pneumonia type: due to unspecified organism Qualified Code(s): J18.1 - Lobar pneumonia, unspecified organism
[2018-07-14] MEDS: OXYCODONE HCL IR 5 MG TAB (IMMEDIATE RELEASE) PO PRN (15:15)
[2018-07-14] MEDS: AMITRIPTYLINE HCL 50 MG TAB PO SCH (20:50)
[2018-07-14] MEDS: ENOXAPARIN INJ 40 MG/0.4 ML SYR SQ SCH (20:51)
[2018-07-15] MEDS: VALACYCLOVIR HCL 500 MG TABLET PO SCH ×2 (06:06→07:21)
[2018-07-15 06:34] LABS: Hematocrit (blood only) 40.1 % (42-52); Hemoglobin 13.4 g/dL (14.0-18.0); Mean Corpuscular Hgb Conc 33.4 g/dL (32-36); Mean Corpuscular Volume 93.5 fL (80-100); Platelet Count 180 K/uL (130-400); RDW Standard Deviation 44.4 fL (36.4-46.3); Red Blood Count 4.29 M/uL (4.7-6.1); White Blood Count 8.62 K/uL (4.8-10.8)
[2018-07-15 07:06] LABS: ALC (manual) 1.89 K/uL (1.2-3.4); Basophils # (manual) 0.08 K/uL (0-0.2); Basophils % (manual) 0.9 %; Lymphocytes # (manual) 0.98 K/uL (1.2-3.4); Lymphocytes % (manual) 11.4 %; Monocytes # (manual) 0.46 K/uL (0.11-0.59); Monocytes % (manual) 5.3 %; Neutrophils % (manual) 64.9 %; Reactive Lymphocytes # (manual) 0.91 K/uL
[2018-07-15 07:09] LABS: BUN Creatinine Ratio 6.5 (10-20); Calcium 8.6 mg/dl (8.5-10.1); Creatinine Clr Calc Pharmacy 59.4 ml/min; Est GFR (African American) 77.5; Est GFR (Non-African American) 66.9; Potassium 3.4 mmol/L (3.5-5.1)
[2018-07-15] MEDS: BUDESONIDE/FORMOTEROL FUMARATE 80/4.5 60 PUFFS/INHALER INH SCH (07:20)
[2018-07-15] MEDS: FLUTICASONE PROPIONATE NA SPR 16 GM BTL SCH (07:20)
[2018-07-15] MEDS: TAMSULOSIN HCL 0.4 MG CAP PO SCH (07:20)
[2018-07-15] MEDS: LACTULOSE SYRUP 10 GM/15 ML BTL 473 ML PO SCH (07:20)
[2018-07-15] MEDS: OXYBUTYNIN CHLORIDE 5 MG TAB PO SCH (07:21)
[2018-07-15] MEDS: PANTOprazole 40 MG TAB PO SCH (07:21)
[2018-07-15] MEDS: GABAPENTIN 300 MG CAP PO SCH ×2 (07:21→12:52)
[2018-07-15] MEDS: DOXYCYCLINE HYCLATE 100 MG CAP PO SCH (07:21)
[2018-07-15] MEDS ORDERED: OXYCODONE HCL IR 5 MG TAB (IMMEDIATE RELEASE) PO STA (11:41)
--- NOTE | 2018-07-15 12:46 | XRay Report ---
XR lumbar spine min 4V routine CLINICAL HISTORY: Acute lower back pain. COMPARISON STUDY: Lumbar spine radiographs March 07, 2016. Lumbar spine CT May 08, 2016. FINDINGS: No acute lumbar spine fracture is identified. There is moderate multilevel disc space narro wing, osteophytosis and vacuum disc phenomenon with moderate multilevel facet arthrosis. Sacroiliac j oints are intact. Large amount of stool is noted within the colon. There is minimal stool within the rectum. IMPRESSION: 1. No acute lumbar spine fracture or subluxation. 2. Moderate multilevel degenerative disc disease and facet arthrosis. 3. Large amount stool within the colon. Minimal stool within the rectum. Electronically signed by: Chris Swenson M.D. 07/15/2018 12:45 PM
--- NOTE | 2018-07-15 12:53 | Discharge Summary ---
Date of Service July 15, 2018 Admission HPI Per Admitting Provider 88 yo male with history of mild cognitive impairment, COPD, tobacco abuse, BPH who returns to the ED after being discharged yesterday, treated for community acquired pneumonia. The patient was noted to have a vesicular rash on upper abdomen and right flank pain. Was treated with Valtrex. He was treated with Azithromcyin for the pneumonia. The patient went home but he started to act slightly confused according to family. He was not eating or drinking well. He had a fever at home and sweats and chills. He felt slightly more short of breath but not severe. He had a nonproductive cough. Flu testing was negative. CXR shows bibasilar infiltrates, left side more predominant. He was given Tylenol for a fever and in improved. He had a leukocytosis of 13k. Cr was up slightly to 1.38 from 1.00. His family says that he was acting confused from the time he got home. His speech was slightly garbled. He cannot give any specific details about his time at home, about his symptoms, about his recent history. Admission Exam Per Admitting Provider Constitutional: WD/WN, vitals as above Eyes: PERRL, conjunctivae normal, anicteric sclerae ENMT: external ear and nose normal, oropharynx normal Neck: trachea midline, no thyromegaly Respiratory: normal respiratory effort and + cough; no respiratory distress and no labored breathing Auscultation: + rhonchi and + wheezes (faint, end exhalation) Cardiovascular: RRR, no murmur, no edema Gastrointestinal (Abdomen): normal bowel sounds, soft, nontender, no hepatosplenomegaly Musculoskeletal: no cyanosis or clubbing, extremities motor strength 5/5 Skin: + rash (in midline, inferior to sternum, erythema with 4-5 clear vesicles) Neurologic: patellar DTR's 2+ bilat, sensation intact and PERRL, EOMI, accommodation nl, no face palsy, no dysarthria Psychiatric: Orientation: alert, oriented to person and cooperative; + not oriented to place and + not oriented to time Lymphatic: no cervical or axillary lymphadenopathy Principal Diagnosis Community acquired Pneumonia Discharge Exam Constitutional WD/WN, vitals as above cooperative and comfortable Eyes EOM intact bilaterally Neck trachea midline; no tracheal deviation Respiratory no respiratory distress and does not use accessory muscles moving good air today, exam greatly improved lung sounds, no wheezes Cardiovascular Rate/Rhythm: regular rate and regular rhythm Gastrointestinal (Abdomen) Inspection/Auscultation: normal bowel sounds Skin generalized erythema of back, no erythema on chest; two healing crusted vesicles on right lower back and also two on right abdomen of dermatome T8 Neurologic awake Psychiatric Orientation: alert Eye Contact: good eye contact Affect: euthymic affect Discharge Data Allergies Allergy/AdvReac Type Severity Reaction Status Date / Time No Known Allergies Allergy Verified 07/11/18 14:27 Consultations 07/11/18 18:44 Consult Case Management - Discharge Planning Routine Ordered Studies 07/11/18 14:29 CT head/brain wo con Stat IMPRESSION: No acute intracranial abnormality. 07/15/2018 Lumbar Xray spine 4V IMPRESSION: 1. No acute lumbar spine fracture or subluxation. 2. Moderate multilevel degenerative disc disease and facet arthrosis. 3. Large amount stool within the colon. Minimal stool within the rectum CXR 2V on 07/14/2018 IMPRESSION: Chronic and emphysematous change. No acute process. CXR 1V on 07/11/2018 IMPRESSION: 1. Cardiomegaly with interval development of mild pulmonary edema. 2. Progressive bibasilar opacities suggest atelectasis. 3. Trace left pleural effusion. Hospital Course (1) Pneumonia: Mr. Vo is an 88yo M with a PMHx of mild cognitive impairment, COPD, tobacco abuse, and BPH who was recently discharged from the ED on 07/11 for LLL pneumonia who presents with fever, chills, AMS, and mild increase in shortness of breath after returning home. He has a vesicular rash in a dermatomal distribution consistent with shingles. He was treated for Pneumonia with Rocephin IV then was switched to Doxycycline day prior to discharge and tolerated well. Will go home on Doxycycline 100mg BID for 6 more days for total of 10 days of antibiotic treatment. Treated Herpes Zoster with Valacyclovir 1gm TID and will discharge home to complete course of 7 days, completed 5 days here. Pneumonia w/ hypoxia - Appears clinically stable this morning with less cough, improved CXR showing only chronic emphysematous change and no acute process. On Doxycycline 100mg BID. Discussed that nearing disposition for discharge home and that pain of right flank/lower back is probably musculoskeletal and shingles related. Discussed short course of pain medication on discharge. Patient has been tolerating pain meds without altered mental status here in hospital. - Previous on admit CXR shows LLL pleural effusion, mild pulmonary edema (new), atelectasis. Today, improved CXR showing only chronic emphysematous change and no acute process. - Received ceftriaxone on 07/11 in ED and completed one dose of azithromycin prior to representation. Will discontinue Rocephin IV and start on Doxycycline - Levofloxacin 750mg Q48H (renal dose adjustment) started on admit. Given tobacco abuse was converted to ceftriaxone and plan for cefdinir/cefpodoxime conversion when ready for PO. - CBC daily. WBC 7 --> 13 --> 10 --> 6.02 --> 5.47 (today). - O2NC PRN to maintain SpO2 >92-94%. On room air this morning. Shingles - Acute, vesicular eruption with dermatomal distribution of pain 4 days ago - Continue valacyclovir 1g Q8H (Day 09/22) - Follow for further rash eruption, contact precautions - APAP 650mg Q4H PRN - For breakthrough pain despite APAP and usual gabapentin 900mg TID, continue with Oxycodone 5mg PRN Erythema of back and chest - generalized erythema on back today that blanches with pressure. Patient was reclined in bed prior to inspection. Could possible drug reaction from antibiotics, heat urticaria, dermatographism, does not appear consistent with cellulitic infection. Antibiotic was switched from Rocephin IV to Doxycycline 100mg BID. Doxycycline will cover antibiotic treatment from pneumonia for discharge home and also added benefit for soft tissue/skin coverage if etiology of skin erythema is infectious. No chest erythema from yesterday. COPD - WAFER SUBSTRATE TESTER Budesonide-Formoterol - Duoneb Q4H PRN HTN - By history, although BP well controlled WAFER SUBSTRATE TESTER, hypotensive on admit - No antihypertensives WAFER SUBSTRATE TESTER Volume Depletion - IVFM: NSS 100cc/hr BPH - Tamulosin .4mg PO daily - oxybutinin 5mg daily vs finasteride? Chronic Back Pain - No back pain at time of admission other than shingles pain as noted - WAFER SUBSTRATE TESTER Amitriptyline DVT Prophylaxsis: Enoxaparin 40mg SQ (2) Hypoxia: resolved (3) Shingles: see above (4) Fever: resolved (5) Altered mental status: appears resolved, alert and oriented x3 Total Time Total Time Spent Total Time Spent (In Minutes): 30 minutes Discharge Plan Discharge Items Patient Disposition: Home - Self-Care Reason For Visit: PNEUMONIA, DEHYDRATION Discharge Diagnosis: Pneumonia, Shingles Condition: Good Discharge Goals: Decrease discomfort, Improve disease control, Improve function, Learn about illness, Prevent disease and Screening Activity: Resume your previous activity Lifting: Gradually increase as tolerated Non-emergency contact: Primary Care Provider Call non-emergency contact if: you have any medication questions, your symptoms worsen, your pain is not controlled and you have a fever Follow-up/Referrals: Ean Arauz, DO [Primary Care Provider] - 07/20/18 9:20 am (Please, follow up with Dr. Ean Arauz on FridayJuly 20 at 9:20 am. *If you need to change this appointment, call the office at [phone].) Diet: Regular Addtl Provider Instructions: You arrived in the hospital with rash consistent with shingles in addition to a diagnosis of Pneumonia. You are currently being treated with antibiotics for the Pneumonia and an antiviral for the Shingles. Please take Doxycycline for an additional 6 days following discharge as prescribed Please take Valacyclovir for an additional 2 days following discharge as prescribed Please follow up with primary care provider within 1 week of discharge -Take your medication exactly as directed. Don't skip doses. Continue taking y our antibiotics as directed until they are all gone - even if you start to feel better. This will prevent the pneumonia from coming back. -Drink at least 8 glasses of water daily, unless directed otherwise. This helps to loosen and thin secretions so that you can cough them up. -Use a cool-mist humidifier in your bedroom. Be sure to clean the humidifier daily. -Coughing up mucus is normal. Don't use medications to suppress your cough unless your cough is dry, painful, or interferes with your sleep. You may use an expectorant if ordered by your doctor. -Warm compresses or a heating pad on the lowest setting can be used to relieve chest discomfort. Use several times a day for 15 to 20 minutes at a time. (To prevent injuring your skin, be sure the temperature of the compress or heating pad is warm, not hot.) -Get plenty of rest until your fever, shortness of breath, and chest pain go away. -Plan to get a flu shot every year. -Ask your doctor about pneumonia vaccinations. Call 911 right away if you have any of the following: Chest pain Trouble breathing Blue lips or fingernails Otherwise, call your doctor if you have any of the following: Fever above 101.5 (38.6C) Yellow, green, bloody, or smelly sputum More than normal mucus production Vomiting Prescriptions: New doxycycline hyclate 100 mg Capsule 100 mg PO BID 6 Days Qty: 12 RF: 0 valacyclovir 500 mg Tablet 1,000 mg PO Q8 2 Days Qty: 6 RF: 0 oxycodone 5 mg Tablet 5 mg PO Q6H PRN (Reason: pain) Qty: 15 RF: 0 Continued tamsulosin [Flomax] 0.4 mg capsule 0.4 mg PO DAILY RF: 0 omeprazole 20 mg capsule,delayed release(DR/EC) 20 mg PO DAILY RF: 0 oxybutynin chloride 5 mg tablet 5 mg PO DAILY RF: 0 fluticasone 50 mcg/actuation spray,suspension 2 sprays INTNAS DAILY RF: 0 acetaminophen 500 mg capsule 1,000 mg PO Q6H PRN (Reason: Pain) RF: 0 cholecalciferol (vitamin D3) 5,000 unit capsule 5,000 units PO DAILY RF: 0 finasteride [Proscar] 5 mg tablet 5 mg PO PM RF: 0 budesonide-formoterol [Symbicort] 80-4.5 mcg/actuation HFA aerosol inhaler 2 puffs INH BID RF: 0 gabapentin 300 mg capsule 900 mg PO TID RF: 0 amitriptyline 50 mg tablet 50 mg PO HS Qty: 90 RF: 0 multivitamin [One Daily Multivitamin] Tablet 1 tab PO DAILY RF: 0 peg [id number] [Eye Drop Tears] 1-0.2-0.2 % Drops 2 drp OPHTHALMIC (EYE) DIRECTED PRN (Reason: Dry Eye(S)) RF: 0 lactulose [Enulose] 10 gram/15 mL Solution 15 ml PO DAILY RF: 0 food supplemt, lactose-reduced [Boost] 0.04 gram- 1 kcal/mL Liquid 1 btl PO DAILY RF: 0 psyllium husk [Metamucil] 3.4 gram/5.4 gram Powder 1 dose PO DIRECTED RF: 0 Bio Cleanse 1 dose PO DAILY RF: 0 Pro Cleanse 1 dose PO DAILY RF: 0 Discontinued valacyclovir 1 gram tablet 1,000 mg PO Q8H 7 Days Qty: 21 RF: 0 doxycycline hyclate 100 mg tablet 100 mg PO Q12H 7 Days Qty: 14 RF: 0 Stand-Alone Forms: My [facility]/Other Patient Handouts: Pneumonia, Shingles Herpes Zoster Discharge Orders: Discharge Order (Routine); Ordered 07/15/18 Ordered By: Ebenezer Arambula Admission Data Admit Date/Time: 07/11/18 17:36 Attending Provider: Gamaliel Avalos Admit Provider: Cristobal Estevez Primary Care Provider: Ean Arauz Service: Medical Other Interventions: Discharge Summary Assessment (RN) Last Done: 07/15/18 16:50 Supervising Physician Co-Signing Physician Notes I saw the patient with Dr. Duke and confirmed bowens portions of the history and physical exam.. I agree with the impression and plan as noted in the resident documentation. Presentation, he is ambulatory in his room and in the hallway without oxygen or shortness of breath. He reports low back pain in both the areas of the suspected shingles as well as in the mid lumbar spine; his pain is worsened by coughing. A x-ray lumbar spine prior to discharge shows osteoarthritis but no acute pathology. Impression Community-acquired pneumonia Shingles Plan P.o. doxycycline as prescribed Oxycodone as needed pain Follow-up with PCP early next week Discussed signs and symptoms of worsening disease and need to be seen more acutely
--- NOTE | 2018-07-17 06:06 | Coding Query ---
To promote full compliance with coding requirements relating to patient care, provider participation is requested in all cases of cheesemaking laborer uncertainty. Please assist us with the question(s) below: Coding Question(s): The diagnosis(es) below were documented in the addendum of the 07/12/18 family medicine progress notes then subsequently fell off all further documentation. Please indicate they are still possible diagnoses or ruled out. Physician's Response(s): GRAM-NEGATIVE PNEUMONIA ( ) Diagnosed and POA ( X ) Diagnosed and not POA ( ) Ruled out ( ) Other (please specify) STREP PNEUMONIA ( ) Diagnosed and POA ( ) Diagnosed and not POA ( ) Ruled out ( ) Other (please specify) MTDD
== END 2018-07-15 18:11 | disposition home health service (06) | DRG 193 ==
LOC: ED 14:15 → SUATTDRO 17:36 → 2E 17:36 → 4W 07-13 14:51